=== PATIENT | female | born 1940 | race Caucasian/White ===

== ENCOUNTER 2016-03-27 15:25 | Emergency (ER) | payer MEDICARE, MEDICAID ==
[~2016-03-27] VITALS: Ht 162.6 cm; Wt 78.6 kg
[~2016-03-27 15:25] MED LIST: ANTIVERT 12.512.5 MG PO; B-12 100 MCG PO; CELEXA 20MG20 MG/TAB PO; DYAZIDE 25 MG-31 CAP PO; DYRENIUM 50MG C50 MG PO; ENTOCORT EC3 MG PO; IMODIUM 2MG CAPS2 MG PO; KEPPRA 500MG500 MG PO; KEPPRA1000 MG PO; KEPPRA750 MG PO; LEVSIN 0.10.125 MG/T SL; MEDROL 4MG DOSPA4 MG PO; MELATONIN5 M1 SL; NIZORAL CR 30GM TOP; NORCO 325 MG-51 TAB PO; PERCOCET 325 MG1 TA2 PO; PRILOSEC 20MG20 MG PO; PRILOTC; PROAIR HFA0.09 MG/AC IH; ROXICODONE 55 MG/TAB PO; RT ADVAIR 228 DISKUS IH; TYLENOL PM EXTR1 TA1 PO; ULTRAM 50MG TAB50 MG PO; VENTOLIN0.09 MG IH; VITAMIN B-1000 MCG/T PO; VITAMIN D32000 I1 PO; XARELTO10 MG PO; ZITHROMAX 250M250 MG PO; ZOCOR 40MG40 MG PO
[2016-03-27 15:41] VITALS: TEMP 98.1
[2016-03-27 16:25] LABS: BASO # 0.1 (0.0-0.2); BASO % 0.7 % (0.0-2.0); EOS # 0.1 (0.0-0.7); EOS % 0.8 % (0-4.0); GRAN # 6.4 (1.4-6.5); GRAN % 76.3 % (42.2-75.2); HEMATOCRIT 36.9 % (37.0-47.0); HEMOGLOBIN 12.1 g/dl (12.5-16.0); LYMPH # 1.6 (1.2-3.4); LYMPH % 18.6 % (20.0-51.0); MEAN CELL VOLUME 96 fl (80.0-100.0); MEAN CORPUSCULAR HEMOGLOBIN 31 pg (27.0-31.0); MEAN CORPUSCULAR HGB CONC 33 g/dl (33.0-37.0); MEAN PLATELET VOLUME 9.8 fl (7.4-10.4); MONO # 0.3 (0.1-0.6); MONO % 3.2 % (1.7-9.3); PLATELET COUNT 264 K/mm3 (130-400); RED BLOOD COUNT 3.85 M/mm3 (4.10-5.30); REDCELL DISTRIBUTION WIDTH-CV 13.2 % (11.5-14.5); WHITE BLOOD COUNT 8.4 K/mm3 (4.8-10.8)
[2016-03-27 16:35] LABS: INR 2.2 (0.8-3.0); PROTHROMBIN TIME 25.5 SECONDS (9.7-12.8)
[2016-03-27 17:03] LABS: ADJUSTED CALCIUM 9.1 mg/dL (8.4-10.2); ALBUMIN 3.1 gm/dL (3.5-5.0); BILIRUBIN,TOTAL 0.6 mg/dL (0.0-1.0); CALCIUM 8.4 mg/dL (8.4-10.2); CREATININE, serum 1.08 mg/dL (0.52-1.25); POTASSIUM 4.3 mmol/L (3.4-5.0)
[2016-03-27 17:18] LABS: PROLACTIN 14.8 ng/mL (3.0-18.6)
[2016-03-27] MEDS ORDERED: NORCO 325 MG-51 TAB PO (17:58)
[2016-03-27] MEDS ORDERED: ZITHROMAX 250M250 MG PO (17:58)
[2016-03-27] MEDS ORDERED: PREDNISONE20 MG PO (17:58)
[2016-03-27 19:26] VITALS: BP 138/78; PULSE 78
== END 2016-03-27 19:28 | disposition home or self-care (01) ==
LOC: COL.ER 15:25
PROVIDERS: Emergency Medicine
DX: R04.0 Epistaxis (principal); G40.909 Epilepsy, unspecified, not intractable, without status epilepticus; J40 Bronchitis, not specified as acute or chronic; J44.9 Chronic obstructive pulmonary disease, unspecified; I25.10 Atherosclerotic heart disease of native coronary artery without angina pectoris; I10 Essential (primary) hypertension; F17.210 Nicotine dependence, cigarettes, uncomplicated; Z95.0 Presence of cardiac pacemaker; Z86.73 Personal history of transient ischemic attack (TIA), and cerebral infarction without residual deficits
CPT/HCPCS: J2405; J7030; J7512

== ENCOUNTER → 2016-05-25 | Outpatient (CLI) | payer MEDICARE, MEDICAID ==
[~2016-05-25] MED LIST changes: +CHERATUSSIN AC120 ML PO; +DOXYCYCLINE 10100 MG PO; +LAMICTAL 25MG T25 MG PO; +PREDNISONE20 MG PO
== END ==
LOC: MC.RAD 09:21
DX: N64.4 Mastodynia (principal); D24.2 Benign neoplasm of left breast; D24.1 Benign neoplasm of right breast; Z85.3 Personal history of malignant neoplasm of breast

== ENCOUNTER 2016-07-08 10:38 | Emergency (ER) | payer MEDICARE, MEDICAID ==
[~2016-07-08] VITALS: Ht 160 cm; Wt 78.6 kg
[~2016-07-08 10:38] MED LIST changes: -CHERATUSSIN AC120 ML PO; -DOXYCYCLINE 10100 MG PO; -LAMICTAL 25MG T25 MG PO
[2016-07-08 10:40] VITALS: PULSE 78; TEMP 97.2
[2016-07-08 11:54] LABS: ADJUSTED CALCIUM 9.3 mg/dL (8.4-10.2); ALANINE AMINOTRANSFERASE 21 U/L (9-52); ALBUMIN 3.6 gm/dL (3.5-5.0); ALKALINE PHOSPHATASE 85 U/L (50-136); ANION GAP 9 mmol/L (7-16); BILIRUBIN,TOTAL 0.6 mg/dL (0.0-1.0); BLOOD UREA NITROGEN 29 mg/dL (7-17); CARBON DIOXIDE 25 mmol/L (22-30); CHLORIDE 105 mmol/L (98-107); GLUCOSE 85 mg/dL (74-106); POTASSIUM 4.4 mmol/L (3.4-5.0); SODIUM 139 mmol/L (137-145); TOTAL PROTEIN 6.4 gm/dL (6.4-8.2)
[2016-07-08 11:58] LABS: C-REACTIVE PROTEIN < 0.5 mg/dL (0.0-0.9)
[2016-07-08 12:05] LABS: BASO # 0.1 (0.0-0.2); BASO % 0.9 % (0.0-2.0); EOS # 0.2 (0.0-0.7); EOS % 2.4 % (0-4.0); GRAN # 4.1 (1.4-6.5); GRAN % 61.5 % (42.2-75.2); HEMATOCRIT 41.5 % (37.0-47.0); HEMOGLOBIN 13.9 g/dl (12.5-16.0); LYMPH % 30.5 % (20.0-51.0); MEAN CELL VOLUME 97 fl (80.0-100.0); MEAN CORPUSCULAR HEMOGLOBIN 33 pg (27.0-31.0); MEAN CORPUSCULAR HGB CONC 34 g/dl (33.0-37.0); MEAN PLATELET VOLUME 11.2 fl (7.4-10.4); MONO # 0.3 (0.1-0.6); MONO % 4.5 % (1.7-9.3); PLATELET COUNT 191 K/mm3 (130-400); RED BLOOD COUNT 4.27 M/mm3 (4.10-5.30); WHITE BLOOD COUNT 6.7 K/mm3 (4.8-10.8)
[2016-07-08 12:08] LABS: PROLACTIN 13.5 ng/mL (3.0-18.6)
[2016-07-08 13:30] VITALS: BP 129/52
== END 2016-07-08 13:32 | disposition home or self-care (01) ==
LOC: COL.ER 10:38
PROVIDERS: Family Medicine
DX: G40.909 Epilepsy, unspecified, not intractable, without status epilepticus (principal)

== ENCOUNTER 2016-07-22 15:55 | Emergency (ER) | payer MEDICARE, MEDICAID ==
[~2016-07-22] VITALS: Ht 160 cm; Wt 80.9 kg
[2016-07-22 16:04] VITALS: BP 138/50; TEMP 98.2
[2016-07-22 16:23] LABS: BASO # 0.1 (0.0-0.2); BASO % 0.7 % (0.0-2.0); EOS # 0.2 (0.0-0.7); EOS % 2.9 % (0-4.0); GRAN # 3.3 (1.4-6.5); HEMATOCRIT 40.5 % (37.0-47.0); HEMOGLOBIN 13.3 g/dl (12.5-16.0); LYMPH # 2.8 (1.2-3.4); LYMPH % 40.8 % (20.0-51.0); MEAN CELL VOLUME 96 fl (80.0-100.0); MEAN CORPUSCULAR HEMOGLOBIN 32 pg (27.0-31.0); MEAN CORPUSCULAR HGB CONC 33 g/dl (33.0-37.0); MEAN PLATELET VOLUME 10.6 fl (7.4-10.4); MONO # 0.4 (0.1-0.6); MONO % 6.3 % (1.7-9.3); PLATELET COUNT 182 K/mm3 (130-400); RED BLOOD COUNT 4.21 M/mm3 (4.10-5.30); REDCELL DISTRIBUTION WIDTH-CV 12.8 % (11.5-14.5); WHITE BLOOD COUNT 6.8 K/mm3 (4.8-10.8)
[2016-07-22 16:27] LABS: INR 1.5 (0.8-3.0); PROTHROMBIN TIME 16.6 SECONDS (9.7-12.8)
[2016-07-22 16:30] LABS: PARTIAL THROMBOPLASTIN TIME 35.4 SECONDS (26.0-37.0)
[2016-07-22 16:35] LABS: ADJUSTED CALCIUM 9.1 mg/dL (8.4-10.2); ALANINE AMINOTRANSFERASE 19 U/L (9-52); ALBUMIN 3.4 gm/dL (3.5-5.0); ALKALINE PHOSPHATASE 74 U/L (50-136); ANION GAP 9 mmol/L (7-16); BILIRUBIN,TOTAL 0.6 mg/dL (0.0-1.0); BLOOD UREA NITROGEN 25 mg/dL (7-17); CALCIUM 8.6 mg/dL (8.4-10.2); CARBON DIOXIDE 24 mmol/L (22-30); CHLORIDE 107 mmol/L (98-107); CREATININE, serum 1.05 mg/dL (0.52-1.25); GLUCOSE 127 mg/dL (74-106); POTASSIUM 4.2 mmol/L (3.4-5.0); SODIUM 140 mmol/L (137-145); TOTAL PROTEIN 6.2 gm/dL (6.4-8.2)
[2016-07-22 16:52] LABS: PROLACTIN 9.3 ng/mL (3.0-18.6)
[2016-07-22 17:03] LABS: TROPONIN-I < 0.012 ng/mL (0.000-0.034)
[2016-07-22 17:31] LABS: PH 5 (5-8); SQUAMOUS EPITHELIAL None Seen /hpf; URINE APPEARANCE Hazy; URINE BACTERIA None Seen /hpf; URINE BILIRUBIN Negative (NEGATIVE); URINE BLOOD Negative (NEGATIVE); URINE COLOR Yellow; URINE GLUCOSE Negative (NEGATIVE); URINE KETONE Negative (NEGATIVE); URINE RBC 0-2 /hpf; URINE UROBILINOGEN Negative (NEGATIVE); URINE WBC 0-2 /hpf
[2016-07-22] MEDS ORDERED: LAMICTAL 25MG T25 MG PO (17:47)
[2016-07-22 18:31] VITALS: PULSE 70
== END 2016-07-22 18:31 | disposition home or self-care (01) ==
LOC: COL.ER 15:55
PROVIDERS: Emergency Medicine
DX: G40.909 Epilepsy, unspecified, not intractable, without status epilepticus (principal); I69.998 Other sequelae following unspecified cerebrovascular disease; I10 Essential (primary) hypertension; I25.10 Atherosclerotic heart disease of native coronary artery without angina pectoris; F41.9 Anxiety disorder, unspecified; Z85.3 Personal history of malignant neoplasm of breast; Z79.01 Long term (current) use of anticoagulants; F32.9 Major depressive disorder, single episode, unspecified
CPT/HCPCS: J2060; J7030

== ENCOUNTER 2016-09-07 21:25 | Emergency (ER) | payer MEDICARE, MEDICAID ==
[~2016-09-07] VITALS: Ht 160 cm; Wt 78.6 kg
[~2016-09-07 21:25] MED LIST changes: +LAMICTAL 25MG T25 MG PO
[2016-09-07 21:26] VITALS: BP 141/50; TEMP 97.2
[2016-09-07 22:10] LABS: BASO # 0.1 (0.0-0.2); BASO % 0.7 % (0.0-2.0); EOS # 0.3 (0.0-0.7); EOS % 2.7 % (0-4.0); GRAN # 5.3 (1.4-6.5); GRAN % 55.1 % (42.2-75.2); HEMATOCRIT 39.2 % (37.0-47.0); HEMOGLOBIN 12.9 g/dl (12.5-16.0); LYMPH # 3.3 (1.2-3.4); LYMPH % 34.3 % (20.0-51.0); MEAN CELL VOLUME 95 fl (80.0-100.0); MEAN CORPUSCULAR HEMOGLOBIN 31 pg (27.0-31.0); MEAN CORPUSCULAR HGB CONC 33 g/dl (33.0-37.0); MEAN PLATELET VOLUME 10.5 fl (7.4-10.4); MONO # 0.7 (0.1-0.6); MONO % 6.9 % (1.7-9.3); PLATELET COUNT 198 K/mm3 (130-400); RED BLOOD COUNT 4.11 M/mm3 (4.10-5.30); REDCELL DISTRIBUTION WIDTH-CV 12.7 % (11.5-14.5); WHITE BLOOD COUNT 9.6 K/mm3 (4.8-10.8)
[2016-09-07 22:15] LABS: INR 2.5 (0.8-3.0); PROTHROMBIN TIME 28.2 SECONDS (9.7-12.8)
[2016-09-07 22:17] LABS: PARTIAL THROMBOPLASTIN TIME 42.9 SECONDS (26.0-37.0)
[2016-09-07 22:22] LABS: ADJUSTED CALCIUM 8.8 mg/dL (8.4-10.2); ALBUMIN 3.7 gm/dL (3.5-5.0); BILIRUBIN,TOTAL 0.6 mg/dL (0.0-1.0); CALCIUM 8.6 mg/dL (8.4-10.2); POTASSIUM 4.6 mmol/L (3.4-5.0); TOTAL PROTEIN 6.7 gm/dL (6.4-8.2)
[2016-09-07 22:38] LABS: PROLACTIN 17.4 ng/mL (3.0-18.6)
[2016-09-07] MEDS ORDERED: ROXICODONE 55 MG/TAB PO (22:57)
[2016-09-07] MEDS ORDERED: ZITHROMAX 250M250 MG PO (22:57)
[2016-09-08 00:07] VITALS: PULSE 61
== END 2016-09-08 00:08 | disposition home or self-care (01) ==
LOC: COL.ER 21:25
PROVIDERS: Emergency Medicine
DX: R04.0 Epistaxis (principal); J40 Bronchitis, not specified as acute or chronic; R11.2 Nausea with vomiting, unspecified; F17.210 Nicotine dependence, cigarettes, uncomplicated; I25.10 Atherosclerotic heart disease of native coronary artery without angina pectoris; G40.909 Epilepsy, unspecified, not intractable, without status epilepticus; Z86.718 Personal history of other venous thrombosis and embolism; Z86.711 Personal history of pulmonary embolism; Z85.3 Personal history of malignant neoplasm of breast; Z79.01 Long term (current) use of anticoagulants
CPT/HCPCS: J2060; J7030

== ENCOUNTER 2016-09-13 15:41 | Emergency (ER) | payer MEDICARE, MEDICAID ==
[~2016-09-13] VITALS: Ht 165.1 cm; Wt 81.8 kg
[2016-09-13 15:45] VITALS: TEMP 98.8
[2016-09-13 16:10] LABS: BASO # 0.1 (0.0-0.2); BASO % 0.8 % (0.0-2.0); EOS # 0.2 (0.0-0.7); EOS % 2.7 % (0-4.0); GRAN # 4.5 (1.4-6.5); GRAN % 56.1 % (42.2-75.2); HEMATOCRIT 39.6 % (37.0-47.0); HEMOGLOBIN 13.1 g/dl (12.5-16.0); LYMPH # 2.8 (1.2-3.4); LYMPH % 34.8 % (20.0-51.0); MEAN CELL VOLUME 95 fl (80.0-100.0); MEAN CORPUSCULAR HEMOGLOBIN 32 pg (27.0-31.0); MEAN CORPUSCULAR HGB CONC 33 g/dl (33.0-37.0); MEAN PLATELET VOLUME 10.4 fl (7.4-10.4); MONO # 0.4 (0.1-0.6); MONO % 5.3 % (1.7-9.3); PLATELET COUNT 241 K/mm3 (130-400); RED BLOOD COUNT 4.15 M/mm3 (4.10-5.30); REDCELL DISTRIBUTION WIDTH-CV 12.8 % (11.5-14.5); WHITE BLOOD COUNT 7.9 K/mm3 (4.8-10.8)
[2016-09-13 16:18] LABS: ADJUSTED CALCIUM 8.8 mg/dL (8.4-10.2); ALANINE AMINOTRANSFERASE 19 U/L (9-52); ALBUMIN 3.6 gm/dL (3.5-5.0); ALKALINE PHOSPHATASE 89 U/L (50-136); ANION GAP 7 mmol/L (7-16); BILIRUBIN,TOTAL 0.6 mg/dL (0.0-1.0); BLOOD UREA NITROGEN 18 mg/dL (7-17); C-REACTIVE PROTEIN < 0.5 mg/dL (0.0-0.9); CALCIUM 8.5 mg/dL (8.4-10.2); CARBON DIOXIDE 26 mmol/L (22-30); CHLORIDE 102 mmol/L (98-107); CREATININE, serum 1.06 mg/dL (0.52-1.25); GLUCOSE 147 mg/dL (74-106); POTASSIUM 4.2 mmol/L (3.4-5.0); SODIUM 134 mmol/L (137-145); TOTAL PROTEIN 6.6 gm/dL (6.4-8.2)
[2016-09-13] MEDS ORDERED: PREDNISONE20 MG PO (17:29)
[2016-09-13] MEDS ORDERED: DOXYCYCLINE 10100 MG PO (17:29)
[2016-09-13] MEDS ORDERED: CHERATUSSIN AC120 ML PO (17:30)
[2016-09-13 17:52] VITALS: BP 126/74; PULSE 71
== END 2016-09-13 17:55 | disposition home or self-care (01) ==
LOC: COL.ER 15:41
PROVIDERS: Family Medicine
DX: J20.9 Acute bronchitis, unspecified (principal); J44.9 Chronic obstructive pulmonary disease, unspecified; I25.2 Old myocardial infarction; I10 Essential (primary) hypertension; M19.90 Unspecified osteoarthritis, unspecified site; F32.9 Major depressive disorder, single episode, unspecified; F41.9 Anxiety disorder, unspecified; I82.409 Acute embolism and thrombosis of unspecified deep veins of unspecified lower extremity; Z85.3 Personal history of malignant neoplasm of breast; Z98.890 Other specified postprocedural states; Z95.0 Presence of cardiac pacemaker; Z86.79 Personal history of other diseases of the circulatory system; Z79.01 Long term (current) use of anticoagulants
CPT/HCPCS: J2930

== ENCOUNTER 2016-12-06 12:00 | Emergency (ER) | payer MEDICARE, MEDICAID ==
[~2016-12-06] VITALS: Ht 160 cm; Wt 83.2 kg
[~2016-12-06 12:00] MED LIST changes: +CHERATUSSIN AC120 ML PO; +DOXYCYCLINE 10100 MG PO
[2016-12-06 12:07] VITALS: TEMP 97.5
[2016-12-06] MEDS ORDERED: KEPPRA1000 MG PO (12:12)
[2016-12-06] MEDS ORDERED: XARELTO20 MG PO (12:13)
[2016-12-06] MEDS ORDERED: TYLENOL 500MG500 MG PO (12:16)
[2016-12-06 13:11] LABS: BASO # 0.1 (0.0-0.2); BASO % 0.9 % (0.0-2.0); EOS # 0.1 (0.0-0.7); EOS % 2.3 % (0-4.0); GRAN # 3.2 (1.4-6.5); GRAN % 55.8 % (42.2-75.2); HEMATOCRIT 38.8 % (37.0-47.0); HEMOGLOBIN 12.7 g/dl (12.5-16.0); LYMPH % 35.1 % (20.0-51.0); MEAN CELL VOLUME 97 fl (80.0-100.0); MEAN CORPUSCULAR HEMOGLOBIN 32 pg (27.0-31.0); MEAN CORPUSCULAR HGB CONC 33 g/dl (33.0-37.0); MEAN PLATELET VOLUME 10.7 fl (7.4-10.4); MONO # 0.3 (0.1-0.6); MONO % 5.6 % (1.7-9.3); PLATELET COUNT 168 K/mm3 (130-400); RED BLOOD COUNT 4.01 M/mm3 (4.10-5.30); REDCELL DISTRIBUTION WIDTH-CV 13.1 % (11.5-14.5); WHITE BLOOD COUNT 5.8 K/mm3 (4.8-10.8)
[2016-12-06 13:17] LABS: ADJUSTED CALCIUM 9.2 mg/dL (8.4-10.2); ALBUMIN 3.2 gm/dL (3.5-5.0); BILIRUBIN,TOTAL 0.7 mg/dL (0.0-1.0); CALCIUM 8.6 mg/dL (8.4-10.2); CREATININE, serum 1.07 mg/dL (0.52-1.25); POTASSIUM 4.4 mmol/L (3.4-5.0); TOTAL PROTEIN 5.8 gm/dL (6.4-8.2)
[2016-12-06 13:34] LABS: PROLACTIN 27.3 ng/mL (3.0-18.6)
[2016-12-06 14:34] VITALS: BP 127/54; PULSE 59
== END 2016-12-06 14:36 | disposition home or self-care (01) ==
LOC: COL.ER 12:00
PROVIDERS: Emergency Medicine
DX: G40.909 Epilepsy, unspecified, not intractable, without status epilepticus (principal); F32.9 Major depressive disorder, single episode, unspecified; F41.9 Anxiety disorder, unspecified; F17.210 Nicotine dependence, cigarettes, uncomplicated; Z85.3 Personal history of malignant neoplasm of breast; Z86.711 Personal history of pulmonary embolism; Z86.79 Personal history of other diseases of the circulatory system
CPT/HCPCS: J2060; J7030

== ENCOUNTER 2017-03-02 22:26 | Emergency (ER) | payer MEDICARE, MEDICAID ==
[~2017-03-02] VITALS: Ht 157.5 cm; Wt 81.8 kg
[2017-03-02 22:26] VITALS: TEMP 98.1
[~2017-03-02 22:26] MED LIST changes: +TYLENOL 500MG500 MG PO; +XARELTO20 MG PO
[2017-03-02 23:19] LABS: BASO # 0.1 (0.0-0.2); BASO % 0.7 % (0.0-2.0); EOS # 0.1 (0.0-0.7); EOS % 1.3 % (0-4.0); GRAN # 5.6 (1.4-6.5); GRAN % 66.8 % (42.2-75.2); HEMOGLOBIN 13.2 g/dl (12.5-16.0); LYMPH # 2.1 (1.2-3.4); LYMPH % 25.7 % (20.0-51.0); MEAN CELL VOLUME 99 fl (80.0-100.0); MEAN CORPUSCULAR HEMOGLOBIN 32 pg (27.0-31.0); MEAN CORPUSCULAR HGB CONC 32 g/dl (33.0-37.0); MEAN PLATELET VOLUME 10.3 fl (7.4-10.4); MONO # 0.4 (0.1-0.6); MONO % 5.3 % (1.7-9.3); PLATELET COUNT 208 K/mm3 (130-400); RED BLOOD COUNT 4.14 M/mm3 (4.10-5.30); WHITE BLOOD COUNT 8.3 K/mm3 (4.8-10.8)
[2017-03-02 23:24] LABS: INR 1.9 (0.8-3.0); PROTHROMBIN TIME 21.7 SECONDS (9.7-12.8)
[2017-03-02 23:26] LABS: PARTIAL THROMBOPLASTIN TIME 31.9 SECONDS (26.0-37.0)
[2017-03-02 23:30] VITALS: BP 121/56; PULSE 71
[2017-03-02 23:31] LABS: ADJUSTED CALCIUM 9.3 mg/dL (8.4-10.2); ALBUMIN 3.6 gm/dL (3.5-5.0); BILIRUBIN,TOTAL 0.6 mg/dL (0.0-1.0); CREATININE, serum 1.15 mg/dL (0.52-1.25); POTASSIUM 4.7 mmol/L (3.4-5.0); TOTAL PROTEIN 6.5 gm/dL (6.4-8.2)
== END 2017-03-02 23:55 | disposition home or self-care (01) ==
LOC: COL.ER 22:26
PROVIDERS: Emergency Medicine
DX: R04.0 Epistaxis (principal); M25.561 Pain in right knee; I25.10 Atherosclerotic heart disease of native coronary artery without angina pectoris; I10 Essential (primary) hypertension; J44.9 Chronic obstructive pulmonary disease, unspecified; G40.909 Epilepsy, unspecified, not intractable, without status epilepticus; F17.210 Nicotine dependence, cigarettes, uncomplicated; Z95.0 Presence of cardiac pacemaker; Z86.718 Personal history of other venous thrombosis and embolism; Z86.73 Personal history of transient ischemic attack (TIA), and cerebral infarction without residual deficits; Z85.3 Personal history of malignant neoplasm of breast

== ENCOUNTER 2017-03-04 14:24 | Emergency (ER) | payer MEDICARE, MEDICAID ==
[~2017-03-04] VITALS: Ht 157.5 cm; Wt 81.8 kg
[2017-03-04 14:25] VITALS: TEMP 98.4
[2017-03-04 15:27] LABS: BASO # 0.1 (0.0-0.2); BASO % 0.7 % (0.0-2.0); EOS # 0.1 (0.0-0.7); EOS % 2.1 % (0-4.0); GRAN # 3.2 (1.4-6.5); GRAN % 47.8 % (42.2-75.2); HEMATOCRIT 39.3 % (37.0-47.0); HEMOGLOBIN 12.8 g/dl (12.5-16.0); LYMPH # 2.8 (1.2-3.4); LYMPH % 42.1 % (20.0-51.0); MEAN CELL VOLUME 98 fl (80.0-100.0); MEAN CORPUSCULAR HEMOGLOBIN 32 pg (27.0-31.0); MEAN CORPUSCULAR HGB CONC 33 g/dl (33.0-37.0); MEAN PLATELET VOLUME 10.9 fl (7.4-10.4); MONO # 0.5 (0.1-0.6); PLATELET COUNT 212 K/mm3 (130-400); RED BLOOD COUNT 4.03 M/mm3 (4.10-5.30); WHITE BLOOD COUNT 6.7 K/mm3 (4.8-10.8)
[2017-03-04 15:33] LABS: INR 1.2 (0.8-3.0); PROTHROMBIN TIME 13.7 SECONDS (9.7-12.8)
[2017-03-04 15:36] LABS: PARTIAL THROMBOPLASTIN TIME 28.7 SECONDS (26.0-37.0)
[2017-03-04 15:49] LABS: ADJUSTED CALCIUM 9.2 mg/dL (8.4-10.2); ALANINE AMINOTRANSFERASE 25 U/L (9-52); ALBUMIN 3.6 gm/dL (3.5-5.0); ALKALINE PHOSPHATASE 101 U/L (50-136); ANION GAP 6 mmol/L (7-16); BILIRUBIN,TOTAL 0.5 mg/dL (0.0-1.0); BLOOD UREA NITROGEN 24 mg/dL (7-17); C-REACTIVE PROTEIN 1.4 mg/dL (0.0-0.9); CALCIUM 8.9 mg/dL (8.4-10.2); CARBON DIOXIDE 25 mmol/L (22-30); CHLORIDE 106 mmol/L (98-107); CREATININE, serum 1.13 mg/dL (0.52-1.25); GLUCOSE 80 mg/dL (74-106); POTASSIUM 4.1 mmol/L (3.4-5.0); SODIUM 137 mmol/L (137-145); TOTAL PROTEIN 6.4 gm/dL (6.4-8.2)
[2017-03-04 16:02] LABS: PROLACTIN 11.8 ng/mL (3.0-18.6)
[2017-03-04 16:04] LABS: ALCOHOL(ethanol),MEDICAL < 10 mg/dL; TROPONIN-I < 0.012 ng/mL (0.000-0.034)
[2017-03-04 18:03] VITALS: BP 142/48; PULSE 59
== END 2017-03-04 18:03 | disposition home or self-care (01) ==
LOC: COL.ER 14:24
PROVIDERS: Emergency Medicine
DX: R41.82 Altered mental status, unspecified (principal); R51 Headache; R91.1 Solitary pulmonary nodule; J44.9 Chronic obstructive pulmonary disease, unspecified; F32.9 Major depressive disorder, single episode, unspecified; G40.909 Epilepsy, unspecified, not intractable, without status epilepticus; Z86.73 Personal history of transient ischemic attack (TIA), and cerebral infarction without residual deficits; Z86.718 Personal history of other venous thrombosis and embolism; Z95.0 Presence of cardiac pacemaker; Z85.3 Personal history of malignant neoplasm of breast
CPT/HCPCS: J2270; J2405; J7030

== ENCOUNTER → 2017-03-20 | Outpatient (CLI) | payer MEDICARE, MEDICAID | LOC: COL.RAD 11:07 | DX: R91.1 Solitary pulmonary nodule (principal); Z72.0 Tobacco use; Z98.890 Other specified postprocedural states | CPT/HCPCS: J7050; Q9967 ==

== ENCOUNTER 2017-04-05 09:13 | Outpatient (CLI) | payer MEDICARE, MEDICAID ==
[2017-04-05] VITALS (13 sets, daily range): BP systolic 126–159; BP diastolic 44–70; PULSE 59–83
[~2017-04-05] VITALS: Ht 162.6 cm; Wt 88.4 kg
== END 2017-04-05 14:34 | disposition home or self-care (01) ==
LOC: COL.RAD 09:13
DX: R91.1 Solitary pulmonary nodule (principal)
CPT/HCPCS: J2250; J3010

== ENCOUNTER 2017-04-06 23:20 | Emergency (ER) | payer MEDICARE, MEDICAID ==
[~2017-04-06] VITALS: Ht 160 cm; Wt 85.9 kg
[2017-04-06 23:24] VITALS: BP 138/56
[2017-04-07] LABS: BASO # 0.1 (0.0-0.2); BASO % 0.8 % (0.0-2.0); EOS # 0.2 (0.0-0.7); EOS % 3.1 % (0-4.0); GRAN # 3.6 (1.4-6.5); GRAN % 48.9 % (42.2-75.2); HEMATOCRIT 38.8 % (37.0-47.0); HEMOGLOBIN 12.6 g/dl (12.5-16.0); LYMPH # 3.1 (1.2-3.4); LYMPH % 41.9 % (20.0-51.0); MEAN CELL VOLUME 98 fl (80.0-100.0); MEAN CORPUSCULAR HEMOGLOBIN 32 pg (27.0-31.0); MEAN CORPUSCULAR HGB CONC 33 g/dl (33.0-37.0); MEAN PLATELET VOLUME 10.7 fl (7.4-10.4); MONO # 0.4 (0.1-0.6); MONO % 5.2 % (1.7-9.3); PLATELET COUNT 190 K/mm3 (130-400); RED BLOOD COUNT 3.95 M/mm3 (4.10-5.30); REDCELL DISTRIBUTION WIDTH-CV 13.2 % (11.5-14.5)
[2017-04-07 00:20] LABS: INR 1.9 (0.8-3.0); PROTHROMBIN TIME 21.9 SECONDS (9.7-12.8)
[2017-04-07 00:23] LABS: PARTIAL THROMBOPLASTIN TIME 35.5 SECONDS (26.0-37.0)
[2017-04-07 01:33] VITALS: PULSE 61
== END 2017-04-07 01:33 | disposition home or self-care (01) ==
LOC: COL.ER 23:20
PROVIDERS: Emergency Medicine
DX: R04.0 Epistaxis (principal); I25.10 Atherosclerotic heart disease of native coronary artery without angina pectoris; J44.9 Chronic obstructive pulmonary disease, unspecified; Z86.73 Personal history of transient ischemic attack (TIA), and cerebral infarction without residual deficits; Z86.718 Personal history of other venous thrombosis and embolism; Z79.01 Long term (current) use of anticoagulants

== ENCOUNTER → 2017-04-24 | Outpatient (CLI) | payer MEDICARE, MEDICAID | LOC: COL.RAD 13:12 | DX: E07.9 Disorder of thyroid, unspecified (principal) ==

== ENCOUNTER 2017-05-09 18:23 | Emergency (ER) | payer MEDICARE, MEDICAID ==
[~2017-05-09] VITALS: Ht 160 cm; Wt 85.9 kg
[2017-05-09 18:27] VITALS: BP 130/56; TEMP 96.9
[2017-05-09 20:05] LABS: COLLECTION METHOD CLEAN CATCH
[2017-05-09] MEDS ORDERED: KEPPRA1000 MG PO (20:11)
[2017-05-09 20:12] LABS: MUCOUS Present /lpf; PH 5 (5-8); SQUAMOUS EPITHELIAL 0-2 /hpf; URINE APPEARANCE Cloudy; URINE BACTERIA None Seen /hpf; URINE BILIRUBIN Negative (NEGATIVE); URINE BLOOD 2+ (NEGATIVE); URINE COLOR Amber; URINE GLUCOSE Negative (NEGATIVE); URINE KETONE Trace (NEGATIVE); URINE LEUKOCYTE ESTERASE 3+ (NEGATIVE); URINE NITRATE Negative (NEGATIVE); URINE PROTEIN(semi-quant) 2+ (NEGATIVE); URINE RBC >50 /hpf; URINE UROBILINOGEN >=4.0 mg/dL (NEGATIVE)
[2017-05-09] MEDS ORDERED: OMNICEF 300MG300 MG PO (20:36)
[2017-05-09] MEDS ORDERED: NORCO 325 MG-51 TAB PO (20:36)
[2017-05-09] MEDS ORDERED: PYRIDIUM200 M1 PO (20:36)
[2017-05-09 21:00] VITALS: PULSE 68
== END 2017-05-09 21:00 | disposition home or self-care (01) ==
LOC: COL.ER 18:23
PROVIDERS: Emergency Medicine
DX: N39.0 Urinary tract infection, site not specified (principal); J44.9 Chronic obstructive pulmonary disease, unspecified; F17.210 Nicotine dependence, cigarettes, uncomplicated; Z85.118 Personal history of other malignant neoplasm of bronchus and lung; Z85.3 Personal history of malignant neoplasm of breast; Z86.711 Personal history of pulmonary embolism

== ENCOUNTER 2017-05-17 07:26 | Day surgery (SDC) | payer MEDICARE, MEDICAID ==
[~2017-05-17] VITALS: Ht 161.3 cm; Wt 86.6 kg
[~2017-05-17 07:26] MED LIST changes: +OMNICEF 300MG300 MG PO; +PYRIDIUM200 M1 PO
[2017-05-17] MEDS ORDERED: RT ADVAIR 228 DISKUS IH (07:51)
[2017-05-17] MEDS ORDERED: PROAIR HFA0.09 MG/AC IH (07:51)
[2017-05-17] MEDS ORDERED: NIZORAL CREAM15 GM TP (07:52)
[2017-05-17] MEDS ORDERED: [UNRECOGNIZED DRUG - OTHER] TOP (07:53)
[2017-05-17 07:54] VITALS: BP 130/48; PULSE 81; TEMP 97.5
[2017-05-17 08:18] LABS: INR 1.1 (0.8-3.0)
[2017-05-17 10:15] VITALS: BP 98/34; PULSE 66; TEMP 98.1
[2017-05-17 10:30] VITALS: BP 113/32; PULSE 72
[2017-05-17 10:45] VITALS: BP 120/58; PULSE 65
[2017-05-17 11:00] VITALS: BP 106/38; PULSE 62
[2017-05-17 16:23] VITALS: BP 105/47; PULSE 71
== END 2017-05-17 11:10 | disposition home or self-care (01) ==
LOC: SDCO 07:26
PROVIDERS: Internal Medicine Pulmonary Disease
DX: C34.11 Malignant neoplasm of upper lobe, right bronchus or lung (principal); J44.9 Chronic obstructive pulmonary disease, unspecified; G47.34 Idiopathic sleep related nonobstructive alveolar hypoventilation; I10 Essential (primary) hypertension; I25.2 Old myocardial infarction; I25.10 Atherosclerotic heart disease of native coronary artery without angina pectoris; K21.9 Gastro-esophageal reflux disease without esophagitis; F17.210 Nicotine dependence, cigarettes, uncomplicated; Z88.8 Allergy status to other drugs, medicaments and biological substances; Z88.1 Allergy status to other antibiotic agents; Z79.01 Long term (current) use of anticoagulants; Z95.0 Presence of cardiac pacemaker; Z86.73 Personal history of transient ischemic attack (TIA), and cerebral infarction without residual deficits; Z80.0 Family history of malignant neoplasm of digestive organs; Z82.49 Family history of ischemic heart disease and other diseases of the circulatory system; Z82.5 Family history of asthma and other chronic lower respiratory diseases
CPT/HCPCS: J2704

== ENCOUNTER 2017-05-23 22:39 | Emergency (ER) | payer MEDICARE, MEDICAID ==
[~2017-05-23] VITALS: Ht 162.6 cm; Wt 86.4 kg
[~2017-05-23 22:39] MED LIST changes: +NIZORAL CREAM15 GM TP; +[UNRECOGNIZED DRUG - OTHER] TOP
[2017-05-23 22:42] VITALS: BP 141/52; TEMP 98.1
[2017-05-23 23:17] LABS: BASO # 0.1 (0.0-0.2); BASO % 0.9 % (0.0-2.0); EOS # 0.2 (0.0-0.7); EOS % 2.7 % (0-4.0); GRAN # 3.8 (1.4-6.5); GRAN % 56.3 % (42.2-75.2); HEMATOCRIT 37.8 % (37.0-47.0); LYMPH # 2.3 (1.2-3.4); LYMPH % 34.6 % (20.0-51.0); MEAN CELL VOLUME 99 fl (80.0-100.0); MEAN CORPUSCULAR HEMOGLOBIN 32 pg (27.0-31.0); MEAN CORPUSCULAR HGB CONC 32 g/dl (33.0-37.0); MONO # 0.4 (0.1-0.6); MONO % 5.4 % (1.7-9.3); PLATELET COUNT 215 K/mm3 (130-400); RED BLOOD COUNT 3.81 M/mm3 (4.10-5.30); REDCELL DISTRIBUTION WIDTH-CV 13.1 % (11.5-14.5)
[2017-05-23 23:22] LABS: INR 1.9 (0.8-3.0); PROTHROMBIN TIME 22.3 SECONDS (9.7-12.8)
[2017-05-24 01:10] VITALS: PULSE 62
== END 2017-05-24 01:10 | disposition home or self-care (01) ==
LOC: COL.ER 22:39
PROVIDERS: Emergency Medicine
DX: R04.0 Epistaxis (principal); I10 Essential (primary) hypertension; E78.5 Hyperlipidemia, unspecified; J44.9 Chronic obstructive pulmonary disease, unspecified; F17.210 Nicotine dependence, cigarettes, uncomplicated; Z86.73 Personal history of transient ischemic attack (TIA), and cerebral infarction without residual deficits

== ENCOUNTER 2017-06-06 13:48 | Emergency (ER) | payer MEDICARE, MEDICAID ==
[~2017-06-06] VITALS: Ht 160 cm; Wt 83.6 kg
[2017-06-06 13:50] VITALS: TEMP 97.4
[2017-06-06 15:06] LABS: BASO % 0.7 % (0.0-2.0); EOS # 0.1 (0.0-0.7); EOS % 2.5 % (0-4.0); GRAN # 3.2 (1.4-6.5); LYMPH # 1.8 (1.2-3.4); MEAN CELL VOLUME 99 fl (80.0-100.0); MEAN CORPUSCULAR HGB CONC 31 g/dl (33.0-37.0); MEAN PLATELET VOLUME 10.2 fl (7.4-10.4); MONO # 0.4 (0.1-0.6); MONO % 7.6 % (1.7-9.3); PLATELET COUNT 180 K/mm3 (130-400); RED BLOOD COUNT 3.45 M/mm3 (4.10-5.30)
[2017-06-06 15:09] LABS: HEMATOCRIT 34.2 % (37.0-47.0); HEMOGLOBIN 10.7 g/dl (12.5-16.0); MEAN CORPUSCULAR HEMOGLOBIN 31 pg (27.0-31.0)
[2017-06-06 15:21] LABS: ALANINE AMINOTRANSFERASE 24 U/L (9-52); ALBUMIN 2.8 gm/dL (3.5-5.0); ALKALINE PHOSPHATASE 76 U/L (50-136); ANION GAP 6 mmol/L (7-16); AST,SGOT 17 U/L (15-37); BILIRUBIN,TOTAL 0.2 mg/dL (0.0-1.0); BLOOD UREA NITROGEN 17 mg/dL (7-17); CARBON DIOXIDE 26 mmol/L (22-30); CHLORIDE 106 mmol/L (98-107); GLUCOSE 99 mg/dL (74-106); POTASSIUM 4.3 mmol/L (3.4-5.0); SODIUM 137 mmol/L (137-145); TOTAL PROTEIN 5.4 gm/dL (6.4-8.2)
[2017-06-06 15:23] LABS: C-REACTIVE PROTEIN < 0.5 mg/dL (0.0-0.9)
[2017-06-06 15:34] LABS: PROLACTIN 13.3 ng/mL (3.0-18.6)
[2017-06-06 15:45] LABS: COLLECTION METHOD CLEAN CATCH
[2017-06-06 15:52] LABS: PH 5 (5-8); SQUAMOUS EPITHELIAL 0-2 /hpf; URINE APPEARANCE Clear; URINE BACTERIA None Seen /hpf; URINE BILIRUBIN Negative (NEGATIVE); URINE BLOOD Negative (NEGATIVE); URINE COLOR Straw; URINE GLUCOSE Negative (NEGATIVE); URINE KETONE Negative (NEGATIVE); URINE LEUKOCYTE ESTERASE Negative (NEGATIVE); URINE NITRATE Negative (NEGATIVE); URINE PROTEIN(semi-quant) Negative (NEGATIVE); URINE RBC None Seen /hpf; URINE UROBILINOGEN Negative (NEGATIVE)
[2017-06-06 16:06] VITALS: BP 127/53; PULSE 59
== END 2017-06-06 16:20 | disposition home or self-care (01) ==
LOC: COL.ER 13:48
PROVIDERS: Family Medicine
DX: G40.909 Epilepsy, unspecified, not intractable, without status epilepticus (principal); F41.9 Anxiety disorder, unspecified
CPT/HCPCS: J2060; J2405; J7030

== ENCOUNTER 2017-06-20 14:14 | Emergency (ER) | payer MEDICARE, MEDICAID ==
[~2017-06-20] VITALS: Ht 160 cm; Wt 82.7 kg
[2017-06-20 14:15] VITALS: TEMP 97.7
[2017-06-20] MEDS ORDERED: INCRUSE EL62.5 MCG/A IH (14:30)
[2017-06-20 14:41] LABS: BASO % 0.8 % (0.0-2.0); EOS # 0.2 (0.0-0.7); LYMPH # 1.5 (1.2-3.4); LYMPH % 29.6 % (20.0-51.0); MEAN CELL VOLUME 98 fl (80.0-100.0); MEAN CORPUSCULAR HGB CONC 32 g/dl (33.0-37.0); MEAN PLATELET VOLUME 10.4 fl (7.4-10.4); MONO # 0.3 (0.1-0.6); MONO % 6.4 % (1.7-9.3); PLATELET COUNT 212 K/mm3 (130-400); RED BLOOD COUNT 3.69 M/mm3 (4.10-5.30); REDCELL DISTRIBUTION WIDTH-CV 12.8 % (11.5-14.5)
[2017-06-20 14:54] LABS: HEMOGLOBIN 11.6 g/dl (12.5-16.0); MEAN CORPUSCULAR HEMOGLOBIN 31 pg (27.0-31.0)
[2017-06-20 14:55] LABS: ALBUMIN 3.1 gm/dL (3.5-5.0); BILIRUBIN,TOTAL 0.2 mg/dL (0.0-1.0); CALCIUM 8.5 mg/dL (8.4-10.2); CREATININE, serum 1.12 mg/dL (0.52-1.25); TOTAL PROTEIN 6.2 gm/dL (6.4-8.2)
[2017-06-20 15:07] LABS: MAGNESIUM 2.2 mg/dL (1.6-2.3)
[2017-06-20 15:45] VITALS: BP 138/47; PULSE 59
== END 2017-06-20 15:45 | disposition home or self-care (01) ==
LOC: COL.ER 14:14
PROVIDERS: Emergency Medicine
DX: C50.911 Malignant neoplasm of unspecified site of right female breast (principal); R56.9 Unspecified convulsions

== ENCOUNTER → 2017-07-12 | Outpatient (CLI) | payer MEDICARE, MEDICAID ==
[~2017-07-12] MED LIST changes: +INCRUSE EL62.5 MCG/A IH
== END ==
LOC: COL.CARD 13:56
DX: G40.409 Other generalized epilepsy and epileptic syndromes, not intractable, without status epilepticus (principal)

== ENCOUNTER 2017-09-24 16:43 | Emergency (ER) | payer MEDICARE, MEDICAID ==
[~2017-09-24] VITALS: Ht 160 cm; Wt 80.5 kg
[2017-09-24 17:04] LABS: BASO # 0.1 (0.0-0.2); BASO % 0.8 % (0.0-2.0); EOS # 0.2 (0.0-0.7); EOS % 2.6 % (0-4.0); GRAN # 3.3 (1.4-6.5); HEMOGLOBIN 11.9 g/dl (12.5-16.0); LYMPH # 2.3 (1.2-3.4); LYMPH % 36.7 % (20.0-51.0); MEAN CELL VOLUME 94 fl (80.0-100.0); MEAN CORPUSCULAR HEMOGLOBIN 31 pg (27.0-31.0); MEAN CORPUSCULAR HGB CONC 33 g/dl (33.0-37.0); MEAN PLATELET VOLUME 10.3 fl (7.4-10.4); MONO # 0.4 (0.1-0.6); MONO % 6.6 % (1.7-9.3); PLATELET COUNT 196 K/mm3 (130-400); RED BLOOD COUNT 3.83 M/mm3 (4.10-5.30); REDCELL DISTRIBUTION WIDTH-CV 14.2 % (11.5-14.5)
[2017-09-24] MEDS ORDERED: COLACE 100100 MG/CAP PO (17:10)
[2017-09-24 17:12] LABS: HEMATOCRIT 36.1 % (37.0-47.0)
[2017-09-24 17:24] LABS: BILIRUBIN,TOTAL 0.4 mg/dL (0.0-1.0); C-REACTIVE PROTEIN 0.5 mg/dL (0.0-0.9); CALCIUM 8.3 mg/dL (8.4-10.2); CREATININE, serum 1.06 mg/dL (0.52-1.25); POTASSIUM 3.5 mmol/L (3.4-5.0); TOTAL PROTEIN 5.8 gm/dL (6.4-8.2)
[2017-09-24 17:49] LABS: COLLECTION METHOD CLEAN CATCH
[2017-09-24 17:54] LABS: MUCOUS Present /lpf; PH 5 (5-8); URINE APPEARANCE Hazy; URINE BACTERIA Rare /hpf; URINE BILIRUBIN Negative (NEGATIVE); URINE BLOOD Negative (NEGATIVE); URINE COLOR Yellow; URINE GLUCOSE Negative (NEGATIVE); URINE KETONE Negative (NEGATIVE); URINE LEUKOCYTE ESTERASE Negative (NEGATIVE); URINE NITRATE Negative (NEGATIVE); URINE PROTEIN(semi-quant) Negative (NEGATIVE); URINE RBC 0-2 /hpf; URINE UROBILINOGEN Negative (NEGATIVE)
[2017-09-24 18:40] VITALS: BP 114/46; PULSE 60
== END 2017-09-24 18:40 | disposition home or self-care (01) ==
LOC: COL.ER 16:43
PROVIDERS: Family Medicine
DX: G40.909 Epilepsy, unspecified, not intractable, without status epilepticus (principal); Z87.891 Personal history of nicotine dependence; Z85.3 Personal history of malignant neoplasm of breast
CPT/HCPCS: J2060; J2405; J7030

== ENCOUNTER 2018-03-13 02:33 | Emergency (ER) | payer MEDICARE, MEDICAID ==
[~2018-03-13] VITALS: Ht 160 cm; Wt 79.1 kg
[~2018-03-13 02:33] MED LIST changes: +COLACE 100100 MG/CAP PO
[2018-03-13 02:37] VITALS: TEMP 97.4
[2018-03-13] MEDS ORDERED: PRIL40 PO (02:58)
[2018-03-13 05:05] VITALS: BP 144/46; PULSE 69
== END 2018-03-13 05:07 | disposition home or self-care (01) ==
LOC: COL.ER 02:33
DX: R04.0 Epistaxis (principal); J44.9 Chronic obstructive pulmonary disease, unspecified; I10 Essential (primary) hypertension; E78.5 Hyperlipidemia, unspecified; F17.210 Nicotine dependence, cigarettes, uncomplicated

== ENCOUNTER 2018-04-12 12:21 | Emergency (ER) | payer MEDICARE, MEDICAID ==
[~2018-04-12] VITALS: Ht 160 cm; Wt 77.3 kg
[~2018-04-12 12:21] MED LIST changes: +PRIL40 PO
[2018-04-12 12:22] VITALS: TEMP 96.8
[2018-04-12 13:07] LABS: BASO # 0.1 (0.0-0.2); BASO % 0.9 % (0.0-2.0); EOS # 0.2 (0.0-0.7); EOS % 3.1 % (0-4.0); GRAN # 3.5 (1.4-6.5); GRAN % 53.8 % (42.2-75.2); HEMATOCRIT 37.7 % (37.0-47.0); HEMOGLOBIN 12.3 g/dl (12.5-16.0); LYMPH # 2.4 (1.2-3.4); LYMPH % 36.3 % (20.0-51.0); MEAN CELL VOLUME 99 fl (80.0-100.0); MEAN CORPUSCULAR HEMOGLOBIN 32 pg (27.0-31.0); MEAN CORPUSCULAR HGB CONC 33 g/dl (33.0-37.0); MEAN PLATELET VOLUME 10.2 fl (7.4-10.4); MONO # 0.4 (0.1-0.6); MONO % 5.6 % (1.7-9.3); PLATELET COUNT 204 K/mm3 (130-400); RED BLOOD COUNT 3.81 M/mm3 (4.10-5.30)
[2018-04-12 13:19] LABS: ALANINE AMINOTRANSFERASE 20 U/L (9-52); ALBUMIN 3.7 gm/dL (3.5-5.0); ALKALINE PHOSPHATASE 93 U/L (50-136); ANION GAP 4 mmol/L (7-16); AST,SGOT 26 U/L (15-37); BILIRUBIN,TOTAL 0.4 mg/dL (0.0-1.0); BLOOD UREA NITROGEN 25 mg/dL (7-17); CALCIUM 9.2 mg/dL (8.4-10.2); CARBON DIOXIDE 27 mmol/L (22-30); CHLORIDE 106 mmol/L (98-107); CREATININE, serum 1.04 mg/dL (0.52-1.25); GLUCOSE 80 mg/dL (74-106); POTASSIUM 4.5 mmol/L (3.4-5.0); SODIUM 138 mmol/L (137-145); TOTAL PROTEIN 6.8 gm/dL (6.4-8.2)
[2018-04-12 13:20] LABS: C-REACTIVE PROTEIN < 0.5 mg/dL (0.0-0.9)
[2018-04-12 13:34] VITALS: BP 137/46; PULSE 85
== END 2018-04-12 13:35 | disposition home or self-care (01) ==
LOC: COL.ER 12:21
PROVIDERS: Family Medicine
DX: R04.0 Epistaxis (principal); I10 Essential (primary) hypertension; G40.909 Epilepsy, unspecified, not intractable, without status epilepticus

== ENCOUNTER 2018-04-17 12:30 | Emergency (ER) | payer MEDICARE, MEDICAID ==
[~2018-04-17] VITALS: Ht 157.5 cm; Wt 79.1 kg
[2018-04-17 12:34] VITALS: TEMP 97.6
[2018-04-17 15:13] VITALS: BP 132/52; PULSE 60
== END 2018-04-17 15:13 | disposition home or self-care (01) ==
LOC: COL.ER 12:30
DX: R04.0 Epistaxis (principal); I10 Essential (primary) hypertension

== ENCOUNTER → 2018-05-05 | Outpatient (CLI) | payer MEDICARE, MEDICAID | LOC: COL.RAD 10:22 | DX: I67.1 Cerebral aneurysm, nonruptured (principal); G40.409 Other generalized epilepsy and epileptic syndromes, not intractable, without status epilepticus; G43.709 Chronic migraine without aura, not intractable, without status migrainosus | CPT/HCPCS: Q9967 ==

== ENCOUNTER 2018-05-11 13:26 | Emergency (ER) | payer MEDICARE, MEDICAID | END 2018-05-11 15:30 | disposition home or self-care (01) | LOC: COL.ER 13:26 | DX: J44.1 Chronic obstructive pulmonary disease with (acute) exacerbation (principal); K08.89 Other specified disorders of teeth and supporting structures; F17.210 Nicotine dependence, cigarettes, uncomplicated; Z95.0 Presence of cardiac pacemaker ==

== ENCOUNTER 2018-05-25 17:51 | Emergency (ER) | payer MEDICARE, MEDICAID ==
[~2018-05-25] VITALS: Ht 160 cm; Wt 79.1 kg
[2018-05-25 17:55] VITALS: TEMP 97.2
[2018-05-25 18:26] LABS: BASO % 0.4 % (0.0-2.0); EOS # 0.1 (0.0-0.7); EOS % 1.8 % (0-4.0); GRAN # 4.2 (1.4-6.5); GRAN % 59.8 % (42.2-75.2); HEMOGLOBIN 10.9 g/dl (12.5-16.0); LYMPH # 2.2 (1.2-3.4); LYMPH % 31.3 % (20.0-51.0); MEAN CELL VOLUME 99 fl (80.0-100.0); MEAN CORPUSCULAR HEMOGLOBIN 31 pg (27.0-31.0); MEAN CORPUSCULAR HGB CONC 32 g/dl (33.0-37.0); MEAN PLATELET VOLUME 10.1 fl (7.4-10.4); MONO # 0.5 (0.1-0.6); MONO % 6.6 % (1.7-9.3); PLATELET COUNT 207 K/mm3 (130-400); RED BLOOD COUNT 3.47 M/mm3 (4.10-5.30); REDCELL DISTRIBUTION WIDTH-CV 14.2 % (11.5-14.5)
[2018-05-25 18:32] LABS: HEMATOCRIT 34.4 % (37.0-47.0)
[2018-05-25 18:41] LABS: ALANINE AMINOTRANSFERASE 24 U/L (9-52); ALBUMIN 3.2 gm/dL (3.5-5.0); ALKALINE PHOSPHATASE 72 U/L (50-136); ANION GAP 4 mmol/L (7-16); AST,SGOT 28 U/L (15-37); BILIRUBIN,TOTAL 0.2 mg/dL (0.0-1.0); BLOOD UREA NITROGEN 23 mg/dL (7-17); CALCIUM 8.6 mg/dL (8.4-10.2); CARBON DIOXIDE 28 mmol/L (22-30); CHLORIDE 107 mmol/L (98-107); CREATININE, serum 1.03 mg/dL (0.52-1.25); GLUCOSE 90 mg/dL (74-106); POTASSIUM 4.2 mmol/L (3.4-5.0); SODIUM 139 mmol/L (137-145); TOTAL PROTEIN 5.9 gm/dL (6.4-8.2)
[2018-05-25 19:14] LABS: TROPONIN-I < 0.012 ng/mL (0.000-0.035)
[2018-05-25 22:20] VITALS: BP 146/74; PULSE 59
== END 2018-05-25 22:21 | disposition home or self-care (01) ==
LOC: COL.ER 17:51
PROVIDERS: Emergency Medicine
DX: R07.89 Other chest pain (principal); R05 Cough; R22.42 Localized swelling, mass and lump, left lower limb; E78.5 Hyperlipidemia, unspecified; I10 Essential (primary) hypertension; J44.9 Chronic obstructive pulmonary disease, unspecified; F17.210 Nicotine dependence, cigarettes, uncomplicated; Z86.711 Personal history of pulmonary embolism; Z86.718 Personal history of other venous thrombosis and embolism; Z79.01 Long term (current) use of anticoagulants; Z95.0 Presence of cardiac pacemaker; Z85.3 Personal history of malignant neoplasm of breast; Z86.73 Personal history of transient ischemic attack (TIA), and cerebral infarction without residual deficits

== ENCOUNTER → 2018-07-03 | Outpatient (CLI) | payer MEDICARE, MEDICAID | LOC: COL.RAD 13:49 | DX: I77.1 Stricture of artery (principal); I70.0 Atherosclerosis of aorta; Z98.890 Other specified postprocedural states; Z95.0 Presence of cardiac pacemaker | CPT/HCPCS: Q9967 ==

== ENCOUNTER 2018-09-15 19:46 | Emergency (ER) | payer MEDICARE, MEDICAID ==
[~2018-09-15] VITALS: Ht 160 cm; Wt 81.8 kg
[2018-09-15 19:52] VITALS: TEMP 97
[2018-09-16] MEDS ORDERED: DOXYCYCLINE 10100 MG PO (00:22)
[2018-09-16 00:39] VITALS: BP 135/57; PULSE 68
== END 2018-09-16 00:45 | disposition home or self-care (01) ==
LOC: COL.ER 19:46
DX: N76.4 Abscess of vulva (principal); I25.10 Atherosclerotic heart disease of native coronary artery without angina pectoris; I10 Essential (primary) hypertension; J45.909 Unspecified asthma, uncomplicated; F17.210 Nicotine dependence, cigarettes, uncomplicated; F32.9 Major depressive disorder, single episode, unspecified; F41.9 Anxiety disorder, unspecified; Z86.73 Personal history of transient ischemic attack (TIA), and cerebral infarction without residual deficits; Z86.718 Personal history of other venous thrombosis and embolism; Z85.118 Personal history of other malignant neoplasm of bronchus and lung

== ENCOUNTER 2018-10-04 21:56 | Emergency (ER) | payer MEDICARE, MEDICAID ==
[~2018-10-04] VITALS: Ht 160 cm; Wt 81.8 kg
[2018-10-04 22:02] VITALS: TEMP 97.9
[2018-10-04 22:33] LABS: BASO # 0.1 (0.0-0.2); BASO % 0.8 % (0.0-2.0); EOS # 0.2 (0.0-0.7); EOS % 3.2 % (0-4.0); GRAN # 3.1 (1.4-6.5); GRAN % 47.4 % (42.2-75.2); HEMATOCRIT 38.7 % (37.0-47.0); HEMOGLOBIN 12.5 g/dl (12.5-16.0); LYMPH # 2.8 (1.2-3.4); LYMPH % 42.6 % (20.0-51.0); MEAN CELL VOLUME 98 fl (80.0-100.0); MEAN CORPUSCULAR HEMOGLOBIN 32 pg (27.0-31.0); MEAN CORPUSCULAR HGB CONC 32 g/dl (33.0-37.0); MEAN PLATELET VOLUME 10.2 fl (7.4-10.4); MONO # 0.4 (0.1-0.6); MONO % 5.8 % (1.7-9.3); PLATELET COUNT 169 K/mm3 (130-400); RED BLOOD COUNT 3.94 M/mm3 (4.10-5.30); REDCELL DISTRIBUTION WIDTH-CV 13.8 % (11.5-14.5)
[2018-10-04 22:40] LABS: INR 1.6 (0.8-3.0); PROTHROMBIN TIME 19.2 SECONDS (9.7-12.8)
[2018-10-04 23:03] LABS: ALANINE AMINOTRANSFERASE 16 U/L (9-52); ALBUMIN 3.5 gm/dL (3.5-5.0); ALKALINE PHOSPHATASE 68 U/L (50-136); ANION GAP 4 mmol/L (7-16); AST,SGOT 32 U/L (15-37); BILIRUBIN,TOTAL 0.4 mg/dL (0.0-1.0); BLOOD UREA NITROGEN 23 mg/dL (7-17); CALCIUM 8.7 mg/dL (8.4-10.2); CARBON DIOXIDE 26 mmol/L (22-30); CHLORIDE 109 mmol/L (98-107); CREATININE, serum 0.95 (0.52-1.25); GLUCOSE 86 mg/dL (74-106); POTASSIUM 4.3 mmol/L (3.4-5.0); SODIUM 139 mmol/L (137-145); TOTAL PROTEIN 6.3 gm/dL (6.4-8.2)
[2018-10-04 23:15] LABS: TROPONIN-I < 0.012 ng/mL (0.000-0.035)
[2018-10-05 00:42] VITALS: BP 141/58; PULSE 71
== END 2018-10-05 00:42 | disposition home or self-care (01) ==
LOC: COL.ER 21:56
PROVIDERS: Emergency Medicine
DX: J44.9 Chronic obstructive pulmonary disease, unspecified (principal); R51 Headache; F17.210 Nicotine dependence, cigarettes, uncomplicated; Z86.73 Personal history of transient ischemic attack (TIA), and cerebral infarction without residual deficits; Z86.718 Personal history of other venous thrombosis and embolism; Z86.79 Personal history of other diseases of the circulatory system; Z95.0 Presence of cardiac pacemaker

== ENCOUNTER 2018-12-04 09:31 | Emergency (ER) | payer MEDICARE, MEDICAID ==
[~2018-12-04] VITALS: Ht 160 cm; Wt 81.8 kg
[2018-12-04 10:03] LABS: BASO # 0.1 (0.0-0.2); BASO % 0.6 % (0.0-2.0); EOS # 0.2 (0.0-0.7); EOS % 2.3 % (0-4.0); GRAN # 6.5 (1.4-6.5); GRAN % 68.2 % (42.2-75.2); HEMATOCRIT 38.8 % (37.0-47.0); HEMOGLOBIN 12.5 g/dl (12.5-16.0); LYMPH # 2.2 (1.2-3.4); LYMPH % 22.7 % (20.0-51.0); MEAN CELL VOLUME 99 fl (80.0-100.0); MEAN CORPUSCULAR HEMOGLOBIN 32 pg (27.0-31.0); MEAN CORPUSCULAR HGB CONC 32 g/dl (33.0-37.0); MEAN PLATELET VOLUME 10.4 fl (7.4-10.4); MONO # 0.6 (0.1-0.6); PLATELET COUNT 204 K/mm3 (130-400); RED BLOOD COUNT 3.92 M/mm3 (4.10-5.30); REDCELL DISTRIBUTION WIDTH-CV 13.6 % (11.5-14.5)
[2018-12-04 10:05] LABS: ALANINE AMINOTRANSFERASE < 6 U/L (9-52); ALBUMIN 3.8 gm/dL (3.5-5.0); ALKALINE PHOSPHATASE 70 U/L (50-136); ANION GAP 8 mmol/L (7-16); AST,SGOT 30 U/L (15-37); BILIRUBIN,TOTAL 0.4 mg/dL (0.0-1.0); BLOOD UREA NITROGEN 26 mg/dL (7-17); CARBON DIOXIDE 24 mmol/L (22-30); CHLORIDE 108 mmol/L (98-107); CREATININE, serum 1.02 (0.52-1.25); GLUCOSE 93 mg/dL (74-106); POTASSIUM 4.3 mmol/L (3.4-5.0); SODIUM 140 mmol/L (137-145); TOTAL PROTEIN 6.7 gm/dL (6.4-8.2)
[2018-12-04] MEDS ORDERED: MEDROL 4MG DOSPA4 MG PO (12:12)
[2018-12-04] MEDS ORDERED: DOXYCYCLINE 10100 MG PO (12:12)
[2018-12-04] MEDS ORDERED: ALBUTEROL0.83 MG/ML IH (12:14)
[2018-12-04] MEDS ORDERED: NEB MC ×2 (12:15→12:30)
[2018-12-04 12:53] VITALS: BP 121/42; PULSE 79; TEMP 97.2
== END 2018-12-04 12:53 | disposition home or self-care (01) ==
LOC: COL.ER 09:31
PROVIDERS: Emergency Medicine
DX: J44.1 Chronic obstructive pulmonary disease with (acute) exacerbation (principal)
CPT/HCPCS: J7030; J7512

== ENCOUNTER 2019-03-05 12:01 | Emergency (ER) | payer MEDICARE, MEDICAID ==
[~2019-03-05] VITALS: Ht 160 cm; Wt 81.8 kg
[~2019-03-05 12:01] MED LIST changes: +ALBUTEROL0.83 MG/ML IH; +NEB MC
[2019-03-05 12:02] VITALS: TEMP 97.8
[2019-03-05 12:28] LABS: BASO % 0.6 % (0.0-2.0); EOS # 0.2 (0.0-0.7); EOS % 2.6 % (0-4.0); GRAN # 4.1 (1.4-6.5); GRAN % 59.6 % (42.2-75.2); HEMATOCRIT 37.7 % (37.0-47.0); HEMOGLOBIN 12.1 g/dl (12.5-16.0); LYMPH % 29.5 % (20.0-51.0); MEAN CELL VOLUME 99 fl (80.0-100.0); MEAN CORPUSCULAR HEMOGLOBIN 32 pg (27.0-31.0); MEAN CORPUSCULAR HGB CONC 32 g/dl (33.0-37.0); MEAN PLATELET VOLUME 10.2 fl (7.4-10.4); MONO # 0.5 (0.1-0.6); MONO % 7.4 % (1.7-9.3); PLATELET COUNT 195 K/mm3 (130-400)
[2019-03-05 12:33] LABS: INR 1.8 (0.8-3.0); PROTHROMBIN TIME 21.6 SECONDS (9.7-12.8)
[2019-03-05 12:36] LABS: PARTIAL THROMBOPLASTIN TIME 39.6 SECONDS (26.0-37.0)
[2019-03-05 12:39] LABS: ALBUMIN 3.6 gm/dL (3.5-5.0); BILIRUBIN,TOTAL 0.2 mg/dL (0.0-1.0); CALCIUM 8.9 mg/dL (8.4-10.2); CREATININE, serum 1.01 (0.52-1.25); POTASSIUM 4.3 mmol/L (3.4-5.0); TOTAL PROTEIN 6.6 gm/dL (6.4-8.2)
[2019-03-05 13:15] VITALS: BP 145/50; PULSE 60
== END 2019-03-05 13:45 | disposition home or self-care (01) ==
LOC: COL.ER 12:01
PROVIDERS: Emergency Medicine
DX: G40.909 Epilepsy, unspecified, not intractable, without status epilepticus (principal); R04.0 Epistaxis; J44.9 Chronic obstructive pulmonary disease, unspecified; I25.10 Atherosclerotic heart disease of native coronary artery without angina pectoris; Z79.01 Long term (current) use of anticoagulants

== ENCOUNTER 2019-03-21 17:43 | Emergency (ER) | payer MEDICARE, MEDICAID ==
[~2019-03-21] VITALS: Ht 154.9 cm; Wt 84.1 kg
[2019-03-21 17:44] VITALS: TEMP 98
[2019-03-21 18:35] LABS: BASO % 0.4 % (0.0-2.0); EOS # 0.2 (0.0-0.7); EOS % 1.9 % (0-4.0); GRAN # 5.5 (1.4-6.5); GRAN % 69.2 % (42.2-75.2); HEMATOCRIT 38.5 % (37.0-47.0); HEMOGLOBIN 12.1 g/dl (12.5-16.0); LYMPH # 1.8 (1.2-3.4); LYMPH % 22.4 % (20.0-51.0); MEAN CELL VOLUME 100 fl (80.0-100.0); MEAN CORPUSCULAR HEMOGLOBIN 31 pg (27.0-31.0); MEAN CORPUSCULAR HGB CONC 31 g/dl (33.0-37.0); MEAN PLATELET VOLUME 10.3 fl (7.4-10.4); MONO # 0.5 (0.1-0.6); PLATELET COUNT 190 K/mm3 (130-400); RED BLOOD COUNT 3.87 M/mm3 (4.10-5.30); REDCELL DISTRIBUTION WIDTH-CV 14.1 % (11.5-14.5)
[2019-03-21 18:39] LABS: ALBUMIN 3.7 gm/dL (3.5-5.0); BILIRUBIN,TOTAL 0.2 mg/dL (0.0-1.0); CALCIUM 8.7 mg/dL (8.4-10.2); CREATININE, serum 1.03 (0.52-1.25); POTASSIUM 4.3 mmol/L (3.4-5.0); TOTAL PROTEIN 6.6 gm/dL (6.4-8.2)
[2019-03-21 18:45] LABS: INR 1.5 (0.8-3.0); PROTHROMBIN TIME 18.1 SECONDS (9.7-12.8)
[2019-03-21 20:29] VITALS: BP 138/47; PULSE 92
== END 2019-03-21 20:29 | disposition home or self-care (01) ==
LOC: COL.ER 17:43
PROVIDERS: Emergency Medicine
DX: R04.0 Epistaxis (principal); R51 Headache; Z79.01 Long term (current) use of anticoagulants; Z86.79 Personal history of other diseases of the circulatory system
CPT/HCPCS: J7030

== ENCOUNTER 2019-05-12 14:50 | Emergency (ER) | payer MEDICARE, MEDICAID ==
[~2019-05-12] VITALS: Ht 162.6 cm; Wt 84.5 kg
[2019-05-12 14:51] VITALS: BP 168/72; TEMP 97.5
[2019-05-12 15:55] VITALS: PULSE 72
== END 2019-05-12 15:57 | disposition home or self-care (01) ==
LOC: COL.ER 14:50
DX: R04.0 Epistaxis (principal); I10 Essential (primary) hypertension; Z79.01 Long term (current) use of anticoagulants

== ENCOUNTER 2019-05-14 11:24 | Emergency (ER) | payer MEDICARE, MEDICAID ==
[~2019-05-14] VITALS: Ht 152.4 cm; Wt 85.0 kg
[2019-05-14 11:28] VITALS: TEMP 97.9
[2019-05-14] MEDS ORDERED: CEPHALEXIN500 M1 PO ×2 (11:48→13:31)
[2019-05-14 12:58] LABS: BASO % 0.6 % (0.0-2.0); EOS # 0.2 (0.0-0.7); EOS % 2.3 % (0-4.0); GRAN # 3.7 (1.4-6.5); GRAN % 56.6 % (42.2-75.2); HEMATOCRIT 38.9 % (37.0-47.0); HEMOGLOBIN 12.5 g/dl (12.5-16.0); LYMPH # 2.2 (1.2-3.4); LYMPH % 33.7 % (20.0-51.0); MEAN CELL VOLUME 97 fl (80.0-100.0); MEAN CORPUSCULAR HEMOGLOBIN 31 pg (27.0-31.0); MEAN CORPUSCULAR HGB CONC 32 g/dl (33.0-37.0); MEAN PLATELET VOLUME 10.4 fl (7.4-10.4); MONO # 0.4 (0.1-0.6); MONO % 6.6 % (1.7-9.3); PLATELET COUNT 177 K/mm3 (130-400); RED BLOOD COUNT 4.02 M/mm3 (4.10-5.30); REDCELL DISTRIBUTION WIDTH-CV 13.6 % (11.5-14.5)
[2019-05-14 13:17] LABS: ALBUMIN 3.8 gm/dL (3.5-5.0); BILIRUBIN,TOTAL 0.4 mg/dL (0.0-1.0); C-REACTIVE PROTEIN 0.7 mg/dL (0.0-0.9); CREATININE, serum 1.09 (0.52-1.25); POTASSIUM 4.1 mmol/L (3.4-5.0); TOTAL PROTEIN 6.9 gm/dL (6.4-8.2)
[2019-05-14] MEDS ORDERED: NORCO 325 MG-51 TAB PO (13:30)
[2019-05-14 13:46] VITALS: BP 166/60; PULSE 60
[2019-05-15] MEDS ORDERED: NORCO 325 MG-51 TAB PO (16:57)
== END 2019-05-14 13:47 | disposition home or self-care (01) ==
LOC: COL.ER 11:24
PROVIDERS: Emergency Medicine
DX: R04.0 Epistaxis (principal); I10 Essential (primary) hypertension; I25.10 Atherosclerotic heart disease of native coronary artery without angina pectoris; J44.9 Chronic obstructive pulmonary disease, unspecified

== ENCOUNTER 2019-05-15 14:57 | Emergency (ER) | payer MEDICARE, MEDICAID ==
[~2019-05-15] VITALS: Ht 162.6 cm; Wt 85.0 kg
[~2019-05-15 14:57] MED LIST changes: +CEPHALEXIN500 M1 PO
[2019-05-15 14:58] VITALS: TEMP 97
[2019-05-15] MEDS ORDERED: NORCO 325 MG-51 TAB PO (16:57)
[2019-05-15 17:45] VITALS: BP 167/55; PULSE 73
== END 2019-05-15 17:45 | disposition home or self-care (01) ==
LOC: COL.ER 14:57
DX: R51 Headache (principal); J44.9 Chronic obstructive pulmonary disease, unspecified; Z86.718 Personal history of other venous thrombosis and embolism; Z86.711 Personal history of pulmonary embolism; Z79.01 Long term (current) use of anticoagulants

== ENCOUNTER → 2019-05-19 | Outpatient (CLI) | payer MEDICARE, MEDICAID | LOC: MC.RAD 09:25 | DX: N63.20 Unspecified lump in the left breast, unspecified quadrant (principal); Z98.82 Breast implant status; Z85.3 Personal history of malignant neoplasm of breast | CPT/HCPCS: G0279 ==

== ENCOUNTER 2019-12-04 10:39 | Emergency (ER) | payer MEDICARE, MEDICAID ==
[~2019-12-04] VITALS: Ht 162.6 cm; Wt 82.7 kg
[2019-12-04 10:49] VITALS: TEMP 98.1
[2019-12-04] MEDS ORDERED: LASIX 20MG TABL20 MG PO (12:11)
[2019-12-04] MEDS ORDERED: K-TAB20 PO (12:11)
[2019-12-04 12:20] VITALS: BP 140/60; PULSE 70
== END 2019-12-04 12:25 | disposition home or self-care (01) ==
LOC: COL.ER 10:39
DX: R22.43 Localized swelling, mass and lump, lower limb, bilateral (principal); F41.9 Anxiety disorder, unspecified; F32.9 Major depressive disorder, single episode, unspecified; F17.210 Nicotine dependence, cigarettes, uncomplicated; Z86.718 Personal history of other venous thrombosis and embolism; Z95.0 Presence of cardiac pacemaker; Z85.3 Personal history of malignant neoplasm of breast; Z86.79 Personal history of other diseases of the circulatory system; Z79.01 Long term (current) use of anticoagulants; Z88.8 Allergy status to other drugs, medicaments and biological substances; Z88.6 Allergy status to analgesic agent

== ENCOUNTER 2020-03-25 12:40 | Emergency (ER) | payer MEDICARE, MEDICAID ==
[~2020-03-25] VITALS: Ht 157.5 cm; Wt 84.1 kg
[~2020-03-25 12:40] MED LIST changes: +K-TAB20 PO; +LASIX 20MG TABL20 MG PO
[2020-03-25 12:43] VITALS: TEMP 97.8
[2020-03-25 13:28] LABS: BASO % 0.4 % (0.0-2.0); EOS # 0.1 (0.0-0.7); EOS % 1.9 % (0-4.0); GRAN # 4.8 (1.4-6.5); GRAN % 69.1 % (42.2-75.2); HEMOGLOBIN 11.6 g/dl (12.5-16.0); LYMPH # 1.6 (1.2-3.4); LYMPH % 22.9 % (20.0-51.0); MEAN CELL VOLUME 96 fl (80.0-100.0); MEAN CORPUSCULAR HEMOGLOBIN 31 pg (27.0-31.0); MEAN CORPUSCULAR HGB CONC 33 g/dl (33.0-37.0); MEAN PLATELET VOLUME 10.8 fl (7.4-10.4); MONO # 0.4 (0.1-0.6); MONO % 5.6 % (1.7-9.3); PLATELET COUNT 199 K/mm3 (130-400); RED BLOOD COUNT 3.74 M/mm3 (4.10-5.30)
[2020-03-25 13:34] LABS: HEMATOCRIT 35.7 % (37.0-47.0)
[2020-03-25 13:36] LABS: INR 2.2 (0.8-3.0); PROTHROMBIN TIME 24.8 SECONDS (9.7-12.8)
[2020-03-25 13:39] LABS: PARTIAL THROMBOPLASTIN TIME 34.3 SECONDS (26.0-37.0)
[2020-03-25 13:42] LABS: ALANINE AMINOTRANSFERASE 11 U/L (4-34); ALBUMIN 3.3 gm/dL (3.5-5.0); ALKALINE PHOSPHATASE 74 U/L (50-136); ANION GAP 3 mmol/L (7-16); AST,SGOT 37 U/L (15-37); BILIRUBIN,TOTAL 0.4 mg/dL (0.0-1.0); BLOOD UREA NITROGEN 24 mg/dL (7-17); CALCIUM 8.7 mg/dL (8.4-10.2); CARBON DIOXIDE 27 mmol/L (22-30); CHLORIDE 107 mmol/L (98-107); CREATININE, serum 1.03 (0.52-1.25); GLUCOSE 91 mg/dL (74-106); POTASSIUM 4.5 mmol/L (3.4-5.0); SODIUM 137 mmol/L (137-145)
[2020-03-25 14:02] LABS: TROPONIN-I < 0.012 ng/mL (0.000-0.035)
[2020-03-25 14:14] LABS: COLLECTION METHOD CLEAN CATCH
[2020-03-25 14:21] LABS: PH 5 (5-8); SQUAMOUS EPITHELIAL 0-2 /hpf; URINE APPEARANCE Clear; URINE BACTERIA None Seen /hpf; URINE BILIRUBIN Negative (NEGATIVE); URINE BLOOD Negative (NEGATIVE); URINE COLOR Yellow; URINE GLUCOSE Negative (NEGATIVE); URINE KETONE Negative (NEGATIVE); URINE LEUKOCYTE ESTERASE Negative (NEGATIVE); URINE NITRATE Negative (NEGATIVE); URINE PROTEIN(semi-quant) Negative (NEGATIVE); URINE RBC 0-2 /hpf; URINE UROBILINOGEN Negative (NEGATIVE); URINE WBC 0-2 /hpf
[2020-03-25 14:37] LABS: LIPASE 147 U/L (23-300)
[2020-03-25] MEDS ORDERED: LIDODERM 5% PATC1 EA TP (15:55)
[2020-03-25 15:56] VITALS: BP 136/53; PULSE 59
== END 2020-03-25 16:15 | disposition home or self-care (01) ==
LOC: COL.ER 12:40
PROVIDERS: Emergency Medicine; Physician Assistant
DX: G40.909 Epilepsy, unspecified, not intractable, without status epilepticus (principal); I10 Essential (primary) hypertension; E78.5 Hyperlipidemia, unspecified; J44.9 Chronic obstructive pulmonary disease, unspecified; Z20.822 Contact with and (suspected) exposure to COVID-19; Z86.711 Personal history of pulmonary embolism; Z95.0 Presence of cardiac pacemaker; Z90.89 Acquired absence of other organs; Z85.3 Personal history of malignant neoplasm of breast; Z85.118 Personal history of other malignant neoplasm of bronchus and lung; Z88.5 Allergy status to narcotic agent; Z88.6 Allergy status to analgesic agent; Z79.01 Long term (current) use of anticoagulants; Z79.51 Long term (current) use of inhaled steroids
CPT/HCPCS: Q9967

== ENCOUNTER 2020-10-28 02:00 | Observation (INO) | payer MEDICARE, MEDICAID ==
[~2020-10-28] VITALS: Ht 162.6 cm; Wt 89.0 kg
[2020-10-28] VITALS (11 sets, daily range): BP systolic 92–141; BP diastolic 31–70; PULSE 60–75; TEMP 97.5–99
[~2020-10-28 02:00] MED LIST changes: -DYRENIUM 50MG C50 MG PO; +LIDODERM 5% PATC1 EA TP
[2020-10-28 02:23] LABS: BASO # 0.1 (0.0-0.2); BASO % 0.9 % (0.0-2.0); EOS # 0.2 (0.0-0.7); EOS % 2.9 % (0-4.0); GRAN # 3.8 (1.4-6.5); GRAN % 54.3 % (42.2-75.2); HEMATOCRIT 39.5 % (37.0-47.0); HEMOGLOBIN 12.6 g/dl (12.5-16.0); LYMPH # 2.5 (1.2-3.4); LYMPH % 36.1 % (20.0-51.0); MEAN CELL VOLUME 99 fl (80.0-100.0); MEAN CORPUSCULAR HEMOGLOBIN 32 pg (27.0-31.0); MEAN CORPUSCULAR HGB CONC 32 g/dl (33.0-37.0); MEAN PLATELET VOLUME 10.5 fl (7.4-10.4); MONO # 0.4 (0.1-0.6); MONO % 5.5 % (1.7-9.3); PLATELET COUNT 197 K/mm3 (130-400); RED BLOOD COUNT 3.99 M/mm3 (4.10-5.30); REDCELL DISTRIBUTION WIDTH-CV 14.2 % (11.5-14.5)
[2020-10-28 02:33] LABS: ALANINE AMINOTRANSFERASE 13 U/L (4-34); ALBUMIN 3.5 gm/dL (3.5-5.0); ALKALINE PHOSPHATASE 69 U/L (50-136); ANION GAP 4 mmol/L (7-16); AST,SGOT 35 U/L (15-37); BILIRUBIN,TOTAL 0.4 mg/dL (0.0-1.0); BLOOD UREA NITROGEN 25 mg/dL (7-17); CALCIUM 8.6 mg/dL (8.4-10.2); CARBON DIOXIDE 27 mmol/L (22-30); CHLORIDE 108 mmol/L (98-107); CREATININE, serum 1.06 (0.52-1.25); GLUCOSE 137 mg/dL (74-106); POTASSIUM 4.5 mmol/L (3.4-5.0); SODIUM 139 mmol/L (137-145); TOTAL PROTEIN 6.5 gm/dL (6.4-8.2)
[2020-10-28 02:45] LABS: TROPONIN-I < 0.012 ng/mL (0.000-0.035)
[2020-10-28 03:00] LABS: CREATINE KINASE 48 U/L (30-135)
[2020-10-28] MEDS ORDERED: MULTIVITAMIN SEN PO (04:48)
[2020-10-28] MEDS ORDERED: MASON NATURAL2000 IU PO (04:48)
[2020-10-28] MEDS ORDERED: INCRUSE EL62.5 MCG/A IH (04:50)
[2020-10-28 11:27] LABS: INR 1.3 (0.8-3.0); PROTHROMBIN TIME 14.9 SECONDS (9.7-12.8)
[2020-10-28 11:29] LABS: PARTIAL THROMBOPLASTIN TIME 30.2 SECONDS (26.0-37.0)
--- NOTE | 2020-10-28 12:49 | NUR ---
cylinder worker met with patient to discuss discharge plan. Patient lives at home by herself in [place]. Has a daughter Giovanna ([phone]) who lives in [place]. Patient states she in mostly independent, however has a lot of support from Giovanna with the cooking and cleaning. Patient states she used to have a walker and cane to get around but has not used them for a long time. Patient is on oxygen within room and reports she uses it at home as well due to her COPD.Patient states she receives her oxygen from [facility].Patient's PCP is Dr. Jennifer Gottlieb with [facility] and uses [facility] for perscriptions. Patient states she does have a DPOA-HC established and has designated Giovanna as her agent. Believes she has a copy at home. cylinder worker called 's office to obtain a copy to no success. Patient plans to discharge home. *Discharge Plan: Home when ready*
--- NOTE | 2020-10-28 13:18 | NUR ---
Contacted Hospitalist, patient called out states that she feels like she cannot breath and needs her rescue inhailer. Notified RT.
--- NOTE | 2020-10-28 14:00 | NUR ---
Contacted Hospitalist about restarting home meds. No new orders at this time.
--- NOTE | 2020-10-28 14:41 | NUR ---
Patient down to laboratory specialist by bed.
--- NOTE | 2020-10-28 15:40 | NUR ---
Patient back to room from heart cath, TR band to left wrist. Denies further needs at this time.
--- NOTE | 2020-10-28 18:42 | NUR ---
Patient doing well post heart cath, contacted hospitalist for tylenol orders, patient complaining of headach. VSS. Patient denies further needs at this time.
--- NOTE | 2020-10-28 19:25 | NUR ---
Discharge instructions provided to patient. Educated on when to call provier and scheduling follow up appointments. Attempted to call daughter to review discharge instructions with patient. TR band to right radial removed, no bleeding noted. Denies further needs at this time. When this nurse spoke with daughter earlier today she stated she would call back at 1999 to see if she could pickling grader patient.
--- NOTE | 2020-10-28 19:50 | NUR ---
DC'D SL FROM RT AC, ANGIOCATH INTACT. DAUGHTER IS ON HER WAY TO BROOM MACHINE OPERATOR PT.
--- NOTE | 2020-10-28 19:56 | NUR ---
DISCHARGED VIA W/C TO PRIVATE CAR. PERSONAL BELONGINGS AND COPY OF DISCHARGE INSTRUCTIONS SENT WITH PATIENT.
== END 2020-10-28 19:56 | disposition home or self-care (01) ==
LOC: COL.ER 02:00 → SURG 06:06
PROVIDERS: Emergency Medicine; ADMIT Internal Medicine
DX: I25.10 Atherosclerotic heart disease of native coronary artery without angina pectoris (principal); I10 Essential (primary) hypertension; I25.2 Old myocardial infarction; I26.99 Other pulmonary embolism without acute cor pulmonale; J44.9 Chronic obstructive pulmonary disease, unspecified; M19.90 Unspecified osteoarthritis, unspecified site; R09.02 Hypoxemia; F17.210 Nicotine dependence, cigarettes, uncomplicated; F41.9 Anxiety disorder, unspecified; F32.9 Major depressive disorder, single episode, unspecified; Z79.899 Other long term (current) drug therapy; Z85.3 Personal history of malignant neoplasm of breast; Z86.73 Personal history of transient ischemic attack (TIA), and cerebral infarction without residual deficits; Z95.0 Presence of cardiac pacemaker; Z86.718 Personal history of other venous thrombosis and embolism; Z92.3 Personal history of irradiation
CPT/HCPCS: G0378; J1644; J2250; Q9967

== ENCOUNTER → 2020-12-22 | Outpatient (CLI) | payer MEDICARE, MEDICAID ==
[~2020-12-22] MED LIST changes: +MASON NATURAL2000 IU PO; +MULTIVITAMIN SEN PO
== END ==
LOC: COL.VAS 13:56
DX: I70.203 Unspecified atherosclerosis of native arteries of extremities, bilateral legs (principal)

== ENCOUNTER 2021-02-05 21:36 | Emergency (ER) | payer MEDICARE, MEDICAID ==
[~2021-02-05] VITALS: Ht 160 cm; Wt 81.8 kg
[2021-02-05 22:26] LABS: BASO # 0.1 K/mm3 (0.0-0.2); BASO % 0.8 % (0.0-2.0); EOS # 0.2 K/mm3 (0.0-0.7); EOS % 2.6 % (0-4.0); GRAN # 3.4 K/mm3 (1.4-6.5); GRAN % 46.9 % (42.2-75.2); HEMOGLOBIN 11.8 g/dl (12.5-16.0); LYMPH # 3.1 K/mm3 (1.2-3.4); LYMPH % 42.6 % (20.0-51.0); MEAN CELL VOLUME 96 fl (80.0-100.0); MEAN CORPUSCULAR HEMOGLOBIN 31 pg (27.0-31.0); MEAN CORPUSCULAR HGB CONC 32 g/dl (33.0-37.0); MEAN PLATELET VOLUME 10.2 fl (7.4-10.4); MONO # 0.5 K/mm3 (0.1-0.6); MONO % 6.8 % (1.7-9.3); PLATELET COUNT 206 K/mm3 (130-400); RED BLOOD COUNT 3.79 M/mm3 (4.10-5.30); REDCELL DISTRIBUTION WIDTH-CV 13.9 % (11.5-14.5)
[2021-02-05 22:38] LABS: ALBUMIN 3.2 gm/dL (3.4-4.8); BILIRUBIN,TOTAL 0.3 mg/dL (0.2-1.2); CALCIUM 9.2 mg/dL (8.4-10.2); CREATININE, serum 1.11 mg/dL (0.57-1.11); HEMATOCRIT 36.4 % (37.0-47.0); POTASSIUM 4.4 mmol/L (3.5-4.5); TOTAL PROTEIN 6.4 gm/dL (6.2-8.1)
[2021-02-06] MEDS ORDERED: NORCO 325 MG-51 TAB PO ×3 (01:06→14:43)
[2021-02-06 01:35] VITALS: BP 142/79; PULSE 68; TEMP 98
== END 2021-02-06 01:35 | disposition home or self-care (01) ==
LOC: COL.ER 21:36
PROVIDERS: Personal Emergency Response Attendant
DX: M79.604 Pain in right leg (principal); I10 Essential (primary) hypertension; I25.10 Atherosclerotic heart disease of native coronary artery without angina pectoris; E78.5 Hyperlipidemia, unspecified; F17.210 Nicotine dependence, cigarettes, uncomplicated; Z86.718 Personal history of other venous thrombosis and embolism; Z88.5 Allergy status to narcotic agent; Z79.01 Long term (current) use of anticoagulants; Z79.899 Other long term (current) drug therapy
CPT/HCPCS: J2270; J2405; Q9967

== ENCOUNTER 2021-04-24 14:28 | Emergency (ER) | payer MEDICARE, MEDICAID ==
[~2021-04-24] VITALS: Ht 160 cm; Wt 86.4 kg
[2021-04-24 14:35] VITALS: BP 137/47; TEMP 97.5
[2021-04-24 16:14] LABS: BASO # 0.1 K/mm3 (0.0-0.2); BASO % 0.8 % (0.0-2.0); EOS # 0.2 K/mm3 (0.0-0.7); EOS % 2.6 % (0.0-4.0); GRAN # 3.4 K/mm3 (1.4-6.5); GRAN % 54.7 % (42.2-75.2); HEMATOCRIT 38.2 % (37.0-47.0); HEMOGLOBIN 12.2 g/dl (12.5-16.0); LYMPH # 2.2 K/mm3 (1.2-3.4); LYMPH % 35.8 % (20.0-51.0); MEAN CELL VOLUME 96 fl (80.0-100.0); MEAN CORPUSCULAR HEMOGLOBIN 31 pg (27-31); MEAN CORPUSCULAR HGB CONC 32 g/dl (33.0-37.0); MONO # 0.4 K/mm3 (0.1-0.6); MONO % 5.8 % (1.7-9.3); PLATELET COUNT 212 K/mm3 (130-400); RED BLOOD COUNT 3.98 M/mm3 (4.10-5.30); REDCELL DISTRIBUTION WIDTH-CV 13.8 % (11.5-14.5)
[2021-04-24 16:21] LABS: INR 2.1 (0.8-3.0); PROTHROMBIN TIME 23.1 SECONDS (9.7-12.8)
[2021-04-24 16:31] LABS: ALBUMIN 3.2 gm/dL (3.4-4.8); CALCIUM 8.8 mg/dL (8.4-10.2); CREATININE, serum 1.1 mg/dL (0.57-1.11); POTASSIUM 4.5 mmol/L (3.5-4.5); TOTAL PROTEIN 6.3 gm/dL (6.2-8.1)
[2021-04-24 16:50] LABS: BILIRUBIN,TOTAL 0.4 mg/dL (0.2-1.2)
[2021-04-24 17:12] VITALS: PULSE 74
== END 2021-04-24 17:12 | disposition home or self-care (01) ==
LOC: COL.ER 14:28
PROVIDERS: Personal Emergency Response Attendant
DX: R04.0 Epistaxis (principal); I25.10 Atherosclerotic heart disease of native coronary artery without angina pectoris; E78.5 Hyperlipidemia, unspecified; J44.9 Chronic obstructive pulmonary disease, unspecified; I10 Essential (primary) hypertension; F17.210 Nicotine dependence, cigarettes, uncomplicated; Z86.73 Personal history of transient ischemic attack (TIA), and cerebral infarction without residual deficits; Z88.6 Allergy status to analgesic agent; Z79.01 Long term (current) use of anticoagulants; Z79.899 Other long term (current) drug therapy

== ENCOUNTER 2021-04-30 16:42 | Emergency (ER) | payer MEDICARE, MEDICAID ==
[~2021-04-30] VITALS: Ht 167.6 cm; Wt 90.9 kg
[2021-04-30 16:43] VITALS: TEMP 95.7
[2021-04-30 16:56] LABS: BASO # 0.1 K/mm3 (0.0-0.2); BASO % 0.8 % (0.0-2.0); EOS # 0.2 K/mm3 (0.0-0.7); EOS % 3.1 % (0.0-4.0); GRAN # 3.8 K/mm3 (1.4-6.5); GRAN % 53.2 % (42.2-75.2); HEMATOCRIT 38.2 % (37.0-47.0); HEMOGLOBIN 12.2 g/dl (12.5-16.0); LYMPH # 2.5 K/mm3 (1.2-3.4); LYMPH % 35.5 % (20.0-51.0); MEAN CELL VOLUME 97 fl (80.0-100.0); MEAN CORPUSCULAR HEMOGLOBIN 31 pg (27-31); MEAN CORPUSCULAR HGB CONC 32 g/dl (33.0-37.0); MEAN PLATELET VOLUME 10.3 fl (7.4-10.4); MONO # 0.5 K/mm3 (0.1-0.6); MONO % 7.1 % (1.7-9.3); PLATELET COUNT 224 K/mm3 (130-400); RED BLOOD COUNT 3.94 M/mm3 (4.10-5.30); REDCELL DISTRIBUTION WIDTH-CV 14.1 % (11.5-14.5)
[2021-04-30 17:05] LABS: INR 2.1 (0.8-3.0); PROTHROMBIN TIME 23.3 SECONDS (9.7-12.8)
[2021-04-30 17:17] LABS: ALBUMIN 3.1 gm/dL (3.4-4.8); BILIRUBIN,TOTAL 0.3 mg/dL (0.2-1.2); CALCIUM 8.8 mg/dL (8.4-10.2); CREATININE, serum 1.22 mg/dL (0.57-1.11); POTASSIUM 4.8 mmol/L (3.5-4.5); TOTAL PROTEIN 6.3 gm/dL (6.2-8.1)
[2021-04-30] MEDS ORDERED: NORCO 325 MG-51 TAB PO (19:07)
[2021-04-30 19:21] VITALS: BP 154/84; PULSE 87
== END 2021-04-30 19:21 | disposition home or self-care (01) ==
LOC: COL.ER 16:42
PROVIDERS: Personal Emergency Response Attendant
DX: R04.0 Epistaxis (principal); F17.200 Nicotine dependence, unspecified, uncomplicated; Z79.01 Long term (current) use of anticoagulants
CPT/HCPCS: J2270; J2405; Q9967

== ENCOUNTER 2021-05-22 11:33 | Emergency (ER) | payer MEDICARE, MEDICAID ==
[~2021-05-22] VITALS: Ht 157.5 cm; Wt 85.5 kg
[2021-05-22 11:58] LABS: BASO # 0.1 K/mm3 (0.0-0.2); BASO % 0.9 % (0.0-2.0); EOS # 0.2 K/mm3 (0.0-0.7); EOS % 3.4 % (0.0-4.0); GRAN # 3.5 K/mm3 (1.4-6.5); GRAN % 59.2 % (42.2-75.2); HEMATOCRIT 38.8 % (37.0-47.0); HEMOGLOBIN 12.7 g/dl (12.5-16.0); LYMPH # 1.8 K/mm3 (1.2-3.4); LYMPH % 30.5 % (20.0-51.0); MEAN CELL VOLUME 96 fl (80.0-100.0); MEAN CORPUSCULAR HEMOGLOBIN 31 pg (27-31); MEAN CORPUSCULAR HGB CONC 33 g/dl (33.0-37.0); MEAN PLATELET VOLUME 10.5 fl (7.4-10.4); MONO # 0.3 K/mm3 (0.1-0.6); MONO % 5.8 % (1.7-9.3); PLATELET COUNT 189 K/mm3 (130-400); RED BLOOD COUNT 4.05 M/mm3 (4.10-5.30); REDCELL DISTRIBUTION WIDTH-CV 14.3 % (11.5-14.5)
[2021-05-22 12:13] LABS: ALBUMIN 3.4 gm/dL (3.4-4.8); BILIRUBIN,TOTAL 0.3 mg/dL (0.2-1.2); CALCIUM 9.3 mg/dL (8.4-10.2); CREATININE, serum 1.16 mg/dL (0.57-1.11); TOTAL PROTEIN 6.6 gm/dL (6.2-8.1)
[2021-05-22 12:19] LABS: POTASSIUM 5.3 mmol/L (3.5-4.5)
[2021-05-22 12:24] LABS: TROPONIN-I 0.013 ng/mL (0.00-0.033)
[2021-05-22] MEDS ORDERED: PREDNISONE50 MG PO (13:36)
[2021-05-22] MEDS ORDERED: DOXYCYCLINE 10100 MG PO (13:36)
[2021-05-22 14:03] VITALS: BP 158/67; PULSE 84; TEMP 98
== END 2021-05-22 14:03 | disposition home or self-care (01) ==
LOC: COL.ER 11:33
PROVIDERS: Emergency Medicine
DX: J44.1 Chronic obstructive pulmonary disease with (acute) exacerbation (principal); J98.4 Other disorders of lung; F17.200 Nicotine dependence, unspecified, uncomplicated; Z99.81 Dependence on supplemental oxygen; Z79.01 Long term (current) use of anticoagulants

== ENCOUNTER 2021-06-22 11:51 | Emergency (ER) | payer MEDICARE, MEDICAID ==
[~2021-06-22] VITALS: Ht 157.5 cm; Wt 84.1 kg
[~2021-06-22 11:51] MED LIST changes: +PREDNISONE50 MG PO
[2021-06-22 12:09] LABS: BASO % 0.6 % (0.0-2.0); EOS # 0.2 K/mm3 (0.0-0.7); EOS % 2.3 % (0.0-4.0); GRAN # 5.1 K/mm3 (1.4-6.5); GRAN % 72.7 % (42.2-75.2); HEMATOCRIT 38.9 % (37.0-47.0); HEMOGLOBIN 12.7 g/dl (12.5-16.0); LYMPH # 1.3 K/mm3 (1.2-3.4); LYMPH % 18.5 % (20.0-51.0); MEAN CELL VOLUME 95 fl (80.0-100.0); MEAN CORPUSCULAR HEMOGLOBIN 31 pg (27-31); MEAN CORPUSCULAR HGB CONC 33 g/dl (33.0-37.0); MEAN PLATELET VOLUME 10.5 fl (7.4-10.4); MONO # 0.4 K/mm3 (0.1-0.6); MONO % 5.8 % (1.7-9.3); PLATELET COUNT 197 K/mm3 (130-400); REDCELL DISTRIBUTION WIDTH-CV 14.1 % (11.5-14.5)
[2021-06-22 12:16] LABS: COLLECTION METHOD CATHETER
[2021-06-22 12:27] LABS: BILIRUBIN,TOTAL 0.3 mg/dL (0.2-1.2); C-REACTIVE PROTEIN 0.31 mg/dL (0.00-0.50); CALCIUM 8.8 mg/dL (8.4-10.2); CREATININE, serum 1.09 mg/dL (0.57-1.11); POTASSIUM 4.4 mmol/L (3.5-4.5); TOTAL PROTEIN 6.3 gm/dL (6.2-8.1)
[2021-06-22 12:47] LABS: PH 5 (5-8); SQUAMOUS EPITHELIAL None Seen /hpf (0-10); URINE APPEARANCE Hazy (CLEAR/HAZY); URINE BACTERIA None Seen /hpf (NONE SEEN); URINE BILIRUBIN Negative (NEGATIVE); URINE BLOOD 1+ (NEGATIVE); URINE COLOR Yellow (YELLOW); URINE GLUCOSE Negative (NEGATIVE); URINE KETONE Negative (NEGATIVE); URINE LEUKOCYTE ESTERASE Negative (NEGATIVE); URINE NITRATE Negative (NEGATIVE); URINE PROTEIN(semi-quant) Negative (NEGATIVE); URINE RBC 0-2 /hpf (0-2); URINE UROBILINOGEN Negative (NEGATIVE)
[2021-06-22 12:47] LABS: PROLACTIN 14.4 ng/mL (5.18-26.53)
[2021-06-22 13:21] VITALS: BP 153/52; PULSE 60; TEMP 98.2
== END 2021-06-22 13:21 | disposition home or self-care (01) ==
LOC: COL.ER 11:51
PROVIDERS: Family Medicine
DX: G40.909 Epilepsy, unspecified, not intractable, without status epilepticus (principal)
CPT/HCPCS: J1953; J2405

== ENCOUNTER 2021-09-19 21:02 | Emergency (ER) | payer MEDICARE, MEDICAID ==
[~2021-09-19] VITALS: Ht 160 cm; Wt 85.0 kg
[2021-09-19] MEDS ORDERED: AMOXICILLIN 8751 TAB PO (22:45)
[2021-09-19 22:59] VITALS: BP 144/78; PULSE 59; TEMP 98.5
== END 2021-09-19 22:59 | disposition home or self-care (01) ==
LOC: COL.ER 21:02
DX: S61.451A Open bite of right hand, initial encounter (principal); F17.210 Nicotine dependence, cigarettes, uncomplicated; Z23 Encounter for immunization; W55.01XA Bitten by cat, initial encounter; Y92.009 Unspecified place in unspecified non-institutional (private) residence as the place of occurrence of the external cause

== ENCOUNTER 2021-10-02 02:41 | Emergency (ER) | payer MEDICARE, MEDICAID ==
[~2021-10-02] VITALS: Ht 160 cm; Wt 85.0 kg
[~2021-10-02 02:41] MED LIST changes: +AMOXICILLIN 8751 TAB PO
[2021-10-02 03:19] LABS: BASO # 0.1 K/mm3 (0.0-0.2); BASO % 1.3 % (0.0-2.0); EOS # 0.1 K/mm3 (0.0-0.7); EOS % 2.6 % (0.0-4.0); GRAN # 2.9 K/mm3 (1.4-6.5); GRAN % 64.1 % (42.2-75.2); HEMOGLOBIN 11.8 g/dl (12.5-16.0); LYMPH # 1.1 K/mm3 (1.2-3.4); LYMPH % 23.7 % (20.0-51.0); MEAN CELL VOLUME 97 fl (80.0-100.0); MEAN CORPUSCULAR HEMOGLOBIN 31 pg (27-31); MEAN CORPUSCULAR HGB CONC 32 g/dl (33.0-37.0); MEAN PLATELET VOLUME 10.7 fl (7.4-10.4); MONO # 0.4 K/mm3 (0.1-0.6); MONO % 8.1 % (1.7-9.3); PLATELET COUNT 148 K/mm3 (130-400); RED BLOOD COUNT 3.79 M/mm3 (4.10-5.30)
[2021-10-02 03:22] LABS: HEMATOCRIT 36.6 % (37.0-47.0)
[2021-10-02 03:36] LABS: BILIRUBIN,TOTAL 0.2 mg/dL (0.2-1.2); C-REACTIVE PROTEIN 0.51 mg/dL (0.00-0.50); CALCIUM 8.5 mg/dL (8.4-10.2); CREATININE, serum 1.1 mg/dL (0.57-1.11); POTASSIUM 4.7 mmol/L (3.5-4.5); TOTAL PROTEIN 6.2 gm/dL (6.2-8.1)
[2021-10-02] MEDS ORDERED: OMNICEF 300MG300 MG PO (04:27)
[2021-10-02] MEDS ORDERED: PREDNISONE20 MG PO (04:27)
[2021-10-02] MEDS ORDERED: CHERATUSSIN AC120 ML PO (04:28)
[2021-10-02 04:43] VITALS: BP 136/47; PULSE 77; TEMP 98.4
== END 2021-10-02 04:43 | disposition home or self-care (01) ==
LOC: COL.ER 02:41
PROVIDERS: Family Medicine
DX: J44.1 Chronic obstructive pulmonary disease with (acute) exacerbation (principal); Z88.5 Allergy status to narcotic agent; Z20.822 Contact with and (suspected) exposure to COVID-19
CPT/HCPCS: J2930; J7030

== ENCOUNTER 2021-10-04 10:26 | Emergency (ER) | payer MEDICARE, MEDICAID ==
[~2021-10-04] VITALS: Ht 162.6 cm; Wt 85.0 kg
[2021-10-04 10:27] VITALS: TEMP 97.6
[2021-10-04 11:17] LABS: BASO % 0.1 % (0.0-2.0); GRAN # 7.3 K/mm3 (1.4-6.5); GRAN % 84.4 % (42.2-75.2); HEMATOCRIT 39.2 % (37.0-47.0); HEMOGLOBIN 12.5 g/dl (12.5-16.0); LYMPH % 11.4 % (20.0-51.0); MEAN CELL VOLUME 98 fl (80.0-100.0); MEAN CORPUSCULAR HEMOGLOBIN 31 pg (27-31); MEAN CORPUSCULAR HGB CONC 32 g/dl (33.0-37.0); MEAN PLATELET VOLUME 10.2 fl (7.4-10.4); MONO # 0.3 K/mm3 (0.1-0.6); MONO % 3.9 % (1.7-9.3); PLATELET COUNT 165 K/mm3 (130-400); RED BLOOD COUNT 4.01 M/mm3 (4.10-5.30); REDCELL DISTRIBUTION WIDTH-CV 14.4 % (11.5-14.5)
[2021-10-04 11:29] LABS: ALBUMIN 3.5 gm/dL (3.4-4.8); BILIRUBIN,TOTAL 0.2 mg/dL (0.2-1.2); CALCIUM 8.8 mg/dL (8.4-10.2); CREATININE, serum 1.22 mg/dL (0.57-1.11); POTASSIUM 4.6 mmol/L (3.5-4.5); TOTAL PROTEIN 6.8 gm/dL (6.2-8.1)
[2021-10-04] MEDS ORDERED: NORCO 325 MG-51 TAB PO (12:11)
[2021-10-04] MEDS ORDERED: PREDNISONE20 MG PO (12:11)
[2021-10-04 12:26] VITALS: BP 130/59; PULSE 83
== END 2021-10-04 12:37 | disposition home or self-care (01) ==
LOC: COL.ER 10:26
PROVIDERS: Personal Emergency Response Attendant
DX: J44.1 Chronic obstructive pulmonary disease with (acute) exacerbation (principal); F17.210 Nicotine dependence, cigarettes, uncomplicated; Z87.09 Personal history of other diseases of the respiratory system
CPT/HCPCS: J1956; J2270; J2405; J2930

== ENCOUNTER 2021-10-20 10:36 | Observation (INO) | payer MEDICARE, MEDICAID ==
[~2021-10-20] VITALS: Ht 162.6 cm; Wt 86.0 kg
[2021-10-20 11:14] LABS: BASO % 0.6 % (0.0-2.0); EOS # 0.1 K/mm3 (0.0-0.7); EOS % 2.1 % (0.0-4.0); GRAN # 4.1 K/mm3 (1.4-6.5); GRAN % 65.9 % (42.2-75.2); HEMATOCRIT 37.9 % (37.0-47.0); HEMOGLOBIN 12.2 g/dl (12.5-16.0); LYMPH # 1.5 K/mm3 (1.2-3.4); MEAN CELL VOLUME 96 fl (80.0-100.0); MEAN CORPUSCULAR HEMOGLOBIN 31 pg (27-31); MEAN CORPUSCULAR HGB CONC 32 g/dl (33.0-37.0); MEAN PLATELET VOLUME 10.1 fl (7.4-10.4); MONO # 0.4 K/mm3 (0.1-0.6); MONO % 6.2 % (1.7-9.3); PLATELET COUNT 190 K/mm3 (130-400); RED BLOOD COUNT 3.93 M/mm3 (4.10-5.30); REDCELL DISTRIBUTION WIDTH-CV 14.3 % (11.5-14.5)
[2021-10-20 11:22] LABS: INR 2.7 (0.8-3.0); PROTHROMBIN TIME 31.4 SECONDS (9.7-12.8)
[2021-10-20 11:25] LABS: PARTIAL THROMBOPLASTIN TIME 44.5 SECONDS (26.0-37.0)
[2021-10-20 11:30] LABS: ALANINE AMINOTRANSFERASE 11 U/L (0-55); ALKALINE PHOSPHATASE 82 U/L (40-150); ANION GAP 10 mmol/L (7-16); AST,SGOT 15 U/L (5-34); BILIRUBIN,TOTAL 0.3 mg/dL (0.2-1.2); BLOOD UREA NITROGEN 15 mg/dL (10-20); CALCIUM 9.2 mg/dL (8.4-10.2); CARBON DIOXIDE 22 mmol/L (23-31); CHLORIDE 109 mmol/L (98-107); CREATININE, serum 1.04 mg/dL (0.57-1.11); GLUCOSE 82 mg/dL (70-99); POTASSIUM 4.6 mmol/L (3.5-4.5); SODIUM 141 mmol/L (136-145); TOTAL PROTEIN 6.4 gm/dL (6.2-8.1)
[2021-10-20 11:42] LABS: TROPONIN-I < 0.010 ng/mL (0.00-0.033)
[2021-10-20 16:30] VITALS: BP 165/49; PULSE 63; TEMP 97.7
--- NOTE | 2021-10-20 17:09 | NUR ---
Patient arrived to the unit, alert and oriented x 4, with HTN and an saturating 91-92 at room air. She coughs continuously and has little sputum production. Assessment intake done.
[2021-10-20] MEDS ORDERED: NEURONTIN100 MG/CAP PO (18:24)
--- NOTE | 2021-10-20 19:15 | NUR ---
Patient is resting right now, at room air. Continues with cough. Report given to oracle reports developer nurse.
[2021-10-20 20:22] VITALS: BP 143/49; PULSE 85; TEMP 98.6
[2021-10-21 00:05] VITALS: BP 136/44; PULSE 79; TEMP 97.5
[2021-10-21 04:50] VITALS: BP 137/52; PULSE 63; TEMP 98.1
[2021-10-21 08:00] VITALS: BP 117/33; BP 153/50; PULSE 57; PULSE 94; TEMP 97.4; TEMP 97.9
--- NOTE | 2021-10-21 10:25 | NUR ---
PT SITTING IN BED, ORDERING BREAKFAST AT THIS TIME, REQUEST FOR HER MORNING MEDICATIONS
[2021-10-21 11:02] LABS: CALCIUM 9.1 mg/dL (8.4-10.2); CREATININE, serum 1.49 mg/dL (0.57-1.11); POTASSIUM 4.7 mmol/L (3.5-4.5)
[2021-10-21 12:00] VITALS: BP 145/67; PULSE 84
--- NOTE | 2021-10-21 13:31 | NUR ---
Manager Retention prayed and offered support with patient while family was in room.
[2021-10-21 16:00] VITALS: BP 141/44; PULSE 73
--- NOTE | 2021-10-21 17:40 | NUR ---
PT HAD A CALM DAY, VSS, ORIENT AND ALERT X4, DUE MEDS GIVEN NO ADVERSE REACTION DOCUMENTED, RAISED COMPLAINTS OF BACK PAIN AND BILATERAL KNEE PAIN PT ON PRN MORHINE I.V. COUGH NOTED WITH CLEAR FROTHY SPUTUM SPECIMEN TAKEN TO THE LAB FOR C/S
--- NOTE | 2021-10-21 20:01 | NUR ---
TX GIVEN VIA MASK, TOLERATED WELL. PT ON ROOM AIR BEFORE AND AFTER TX. PT REQUESTED THAT I NOT WAKE HER FOR 0200 TX IF SLEEPING.
[2021-10-21 21:00] VITALS: BP 129/47; PULSE 69; TEMP 97.9
[2021-10-22 00:21] VITALS: BP 130/57; PULSE 95; TEMP 97.9
--- NOTE | 2021-10-22 02:11 | NUR ---
Pt alert and oriented. Calm and cooperative. Follows commands. Steady gait in room. Pt reported to me that she was very happy that she could ambulate around the room without oxygen or SOB. Pt denies chest pain/SOB at this time. Pt up to void. VS stable. On room air. Lungs sound clear. Pt continues to have a productive cough. Tolerating PO. Pt did request that she receive her gabapentin at 2300 instead of 2100 this evening. Shift assessment performed. Medications administered per orders and education provided. No significant skin issues noted. Fall precautions in place. phototypesetting equipment monitor on. Pt does not report any questions at this time. Bed low and locked, call douglas within reach. No new concerns at this time.
[2021-10-22 04:26] VITALS: BP 135/43; PULSE 66; TEMP 97.8
[2021-10-22 05:23] LABS: BASO % 0.3 % (0.0-2.0); EOS % 0.1 % (0.0-4.0); GRAN # 6.8 K/mm3 (1.4-6.5); GRAN % 66.5 % (42.2-75.2); HEMATOCRIT 37.5 % (37.0-47.0); HEMOGLOBIN 12.1 g/dl (12.5-16.0); LYMPH # 2.9 K/mm3 (1.2-3.4); LYMPH % 28.2 % (20.0-51.0); MEAN CELL VOLUME 95 fl (80.0-100.0); MEAN CORPUSCULAR HEMOGLOBIN 31 pg (27-31); MEAN CORPUSCULAR HGB CONC 32 g/dl (33.0-37.0); MEAN PLATELET VOLUME 10.1 fl (7.4-10.4); MONO # 0.5 K/mm3 (0.1-0.6); MONO % 4.7 % (1.7-9.3); PLATELET COUNT 203 K/mm3 (130-400); RED BLOOD COUNT 3.94 M/mm3 (4.10-5.30); REDCELL DISTRIBUTION WIDTH-CV 14.2 % (11.5-14.5)
--- NOTE | 2021-10-22 05:25 | NUR ---
PT BEGAN COMPLAINING OF LEFT SIDED CHEST PAIN AROUND 0515. VS WERE IMMEDIATELY ASSESSED: BP 164/49, HR 67, O2 93% ON ROOM AIR. PT STATED HER RIGHT LEG WAS ALSO HURTING FROM TOP TO BOTTOM. DENIES NUMBNESS/TINGLING OF THE RIGHT LEG. DENIES SOB. YANIRA SHAH. THE FOLLOWING VERBAL PHONE ORDER READBACKS WERE MADE: 1. CXR NOW STAT 2. EKG NOW STAT 3. TROPONIN LAB NOW 4. GIVE IV MORPHINE NOW 5. GIVE SUBLINGUAL NITROGLYCERIN NOW. ORDERS FOLLOWED PER PROVIDER. PT APPEARS TO HAVE LOTS OF ANXIETY AND BEGAN CRYING, SPEAKING INCOHERENTLY, AND QUIVERING HER LIP. PT STATED "SEIZURE" THE STATED "KEPPRA". PT IS ALERT AND ORIENTED AND ABLE TO SPEAK. I EDUCATED PT THAT HER PO KEPPRA WAS ADMINISTERED PER ORDERS AT THE BEGINNING OF THE EVENING. AROUND 0520 THE PT BEGAN TO REPORT CHEST PAIN RELIEF AFTER MORPHINE ADMINISTRATION. 1 SUBLINGUAL NITRO HAS BEEN ADMINISTERED, WILL ADMINISTER A SECOND AFTER 5 MINUTES. I AM AT BEDSIDE CONTINUOUSLY MONITORING THE PT. NO OTHER CHANGES AT THIS TIME.
[2021-10-22 05:37] LABS: CREATININE, serum 1.35 mg/dL (0.57-1.11); POTASSIUM 4.4 mmol/L (3.5-4.5)
[2021-10-22 05:45] LABS: TROPONIN-I 0.014 ng/mL (0.00-0.033)
--- NOTE | 2021-10-22 07:24 | NUR ---
Pt alert and oriented, resting at the current moment. Reports that the chest pain has completely stopped after ordered IV morphine and 2 sublingual nitroglycerin tablets. Pt still reports right leg pain. VS stable. On room air. Breathing has returned to normal rate. Pt is now calm and appears less anxious. Pt up to void overnight. Notified cardiology of pt's new cardiology consult this morning. Telemetry on. Fall precautions in place. Pt does not report any further questions. Bed low and locked, call douglas within reach. No new concerns at this time.
--- NOTE | 2021-10-22 07:33 | NUR ---
PT SLEEPING DURING BEDSIDE REPORT
[2021-10-22 08:00] VITALS: BP 127/41; PULSE 66; TEMP 98
[2021-10-22 12:00] VITALS: BP 107/34; PULSE 77; TEMP 97.8
--- NOTE | 2021-10-22 12:41 | NUR ---
SW met with patient to complete intake. Patient states that she lives with her daughter Giovanna Ceja [phone]. Patient states that she utilizes a walker, independent with ADL's, and uses [facility] only for cleaning services. PCP is Dr. Gottlieb, and pharmacy is [facility]. Patient provides that her daughter Giovanna has been appointed as DPOA/HC. Patient plans to return to her home with her daughter upon DC. SW will continue to follow. DC plan: home with daughter
[2021-10-22 16:00] VITALS: BP 98/33; PULSE 66; TEMP 99
--- NOTE | 2021-10-22 18:17 | NUR ---
PT HAD A CALM DAY, ORIENT AND ALERT X4, PT WAS ABLE TO AMBULATE SELF TO THE BATHROOM AND BACK TO BED. RAISED COMPLAINTS OF RIGHT KNEE PAIN, PT GIVEN PRN PAIN MEDICATIONS PRESCRIBED.OTHER DUE MEDICATIONS GIVEN NO ADVERSE REACTIONS NOTED.
--- NOTE | 2021-10-22 19:01 | NUR ---
TX GIVEN VIA MASK, TOLERATED WELL. PT ON ROOM AIR BEFORE AND AFTER TX.
--- NOTE | 2021-10-22 20:30 | NUR ---
Initial shift assessment done- very pleasant, alert/oriented x4, states was just talking to her sister on the phone and had a good conversation, in good spirits tonight, Tele on, states would like her Morphine for her right knee pain tonight- states she is having a U/S tomorrow of legs to look for clots, no other requests tonight- denies need for a snack
[2021-10-22 21:21] VITALS: BP 119/41; PULSE 70; TEMP 97.4
[2021-10-23 01:06] VITALS: BP 130/52; PULSE 76; TEMP 97.4
[2021-10-23 04:59] VITALS: BP 131/34; PULSE 82; TEMP 97.9
--- NOTE | 2021-10-23 06:07 | NUR ---
Medicated x2 during the night for right knee/foot pain- given the Morphine IV 1 mg each time-- states good relief with the morphine,,, did sleep well overall last night.
[2021-10-23 08:01] VITALS: BP 154/49; PULSE 90; TEMP 97.6
--- NOTE | 2021-10-23 09:00 | NUR ---
PATIENT STATED SHE FELT HER LEGS SWELLING. UPON ASSESMENT, NO SWELLING OF THE BLE NOTED. ALSO ASKED WHERE SHE AND THE DAUGHTER REPORTED REDNESS OF THE LLE. PATIENT POINTED TO LOWER CALF/ANKLE AREA. NO REDNESS NOTED.
--- NOTE | 2021-10-23 09:44 | NUR ---
PATIENTS DAUGHTER REQUESTED TO SPEAK TO THE [employer] PROGRAMMER TEAM. MODESTO CASEY AND WILL SPEAK TO PATIENT AND FAMILY WHEN POSSIBLE.
[2021-10-23 11:24] VITALS: BP 113/42; PULSE 65; TEMP 97.7
[2021-10-23] MEDS ORDERED: NICODERM C14 MG/PATC TD (12:06)
[2021-10-23] MEDS ORDERED: PREDNISONE20 MG PO (12:09)
[2021-10-23] MEDS ORDERED: PREDNISONE10 MG PO (12:10)
[2021-10-23] MEDS ORDERED: ULTRAM 50MG TAB50 MG PO (12:13)
[2021-10-23] MEDS ORDERED: COMBIRESP IH (13:26)
--- NOTE | 2021-10-23 14:00 | NUR ---
PATIENTS IV DISCONTINUED. DISCHARGE EDUCATION AND INSTRUCTIONS GIVEN. PATIENT TAKEN VIA WHEELCHAIR TO DAUGHTER PAULO. PATIENT LEFTIN STABLE CONDITION WITH ALL DISCHARGE INFO/EDUCATION AND BELONGINGS
== END 2021-10-23 14:00 | disposition home health service (06) ==
LOC: COL.ER 10:36 → MEDICAL 12:50
PROVIDERS: Emergency Medicine; ADMIT Internal Medicine
DX: J96.01 Acute respiratory failure with hypoxia (principal); J96.02 Acute respiratory failure with hypercapnia; J44.1 Chronic obstructive pulmonary disease with (acute) exacerbation; I10 Essential (primary) hypertension; E78.5 Hyperlipidemia, unspecified; M79.89 Other specified soft tissue disorders; I08.3 Combined rheumatic disorders of mitral, aortic and tricuspid valves; F17.210 Nicotine dependence, cigarettes, uncomplicated; R07.9 Chest pain, unspecified; M79.662 Pain in left lower leg; N17.9 Acute kidney failure, unspecified; M79.661 Pain in right lower leg; Z28.310 Unvaccinated for COVID-19; Z28.9 Immunization not carried out for unspecified reason; Z79.899 Other long term (current) drug therapy; Z95.0 Presence of cardiac pacemaker; Z79.01 Long term (current) use of anticoagulants; Z86.79 Personal history of other diseases of the circulatory system; Z86.711 Personal history of pulmonary embolism; Z86.718 Personal history of other venous thrombosis and embolism; Z20.822 Contact with and (suspected) exposure to COVID-19
CPT/HCPCS: 99222-AI; 99232-AI; G0378; J0456; J1940; J2270; J2930; J7050; J7512

== ENCOUNTER 2021-11-05 07:38 | Emergency (ER) | payer MEDICARE, MEDICAID ==
[~2021-11-05] VITALS: Ht 162.6 cm; Wt 85.0 kg
[2021-11-05 07:38] VITALS: TEMP 98.8
[~2021-11-05 07:38] MED LIST changes: +COMBIRESP IH; +NEURONTIN100 MG/CAP PO; +NICODERM C14 MG/PATC TD; +PREDNISONE10 MG PO
[2021-11-05] MEDS ORDERED: ROXICODONE 55 MG/TAB PO (08:23)
[2021-11-05] MEDS ORDERED: DULCOLAX STOOL100 MG PO (08:24)
[2021-11-05 08:40] VITALS: BP 142/49; PULSE 76
== END 2021-11-05 08:40 | disposition home or self-care (01) ==
LOC: COL.ER 07:38
DX: I73.9 Peripheral vascular disease, unspecified (principal); Z88.5 Allergy status to narcotic agent; Z88.6 Allergy status to analgesic agent

== ENCOUNTER 2021-11-21 15:12 | Emergency (ER) | payer MEDICARE, MEDICAID ==
[~2021-11-21] VITALS: Ht 162.6 cm; Wt 81.8 kg
[~2021-11-21 15:12] MED LIST changes: +DULCOLAX STOOL100 MG PO
[2021-11-21 15:17] VITALS: BP 145/60; PULSE 85; TEMP 97.8
== END 2021-11-21 17:32 | disposition home or self-care (01) ==
LOC: COL.ER 15:12
DX: G89.29 Other chronic pain (principal); I73.9 Peripheral vascular disease, unspecified; F17.200 Nicotine dependence, unspecified, uncomplicated; Z88.6 Allergy status to analgesic agent

== ENCOUNTER 2022-05-19 09:05 | Emergency (ER) | payer MEDICARE, MEDICAID ==
[~2022-05-19] VITALS: Ht 165.1 cm; Wt 83.2 kg
[2022-05-19 09:14] VITALS: BP 116/69; TEMP 97.5
[2022-05-19] MEDS ORDERED: AMOXICILLIN 8751 TAB PO (09:34)
[2022-05-19 09:55] VITALS: PULSE 70
== END 2022-05-19 09:55 | disposition home or self-care (01) ==
LOC: COL.ER 09:05
DX: S51.812A Laceration without foreign body of left forearm, initial encounter (principal); Z79.01 Long term (current) use of anticoagulants; W55.03XA Scratched by cat, initial encounter

== ENCOUNTER 2022-06-10 03:15 | Emergency (ER) | payer MEDICARE, MEDICAID ==
[~2022-06-10] VITALS: Ht 157.5 cm; Wt 82.3 kg
[2022-06-10 04:17] LABS: BASO # 0.1 K/mm3 (0.0-0.2); BASO % 0.6 % (0.0-2.0); EOS # 0.3 K/mm3 (0.0-0.7); EOS % 3.4 % (0.0-4.0); GRAN # 6.2 K/mm3 (1.4-6.5); HEMATOCRIT 38.4 % (37.0-47.0); HEMOGLOBIN 12.4 g/dl (12.5-16.0); LYMPH # 1.5 K/mm3 (1.2-3.4); LYMPH % 17.7 % (20.0-51.0); MEAN CELL VOLUME 98 fl (80.0-100.0); MEAN CORPUSCULAR HEMOGLOBIN 32 pg (27-31); MEAN CORPUSCULAR HGB CONC 32 g/dl (33.0-37.0); MONO # 0.5 K/mm3 (0.1-0.6); MONO % 6.2 % (1.7-9.3); PLATELET COUNT 132 K/mm3 (130-400); RED BLOOD COUNT 3.93 M/mm3 (4.10-5.30); REDCELL DISTRIBUTION WIDTH-CV 13.4 % (11.5-14.5)
[2022-06-10 05:27] LABS: ALBUMIN 3.1 gm/dL (3.4-4.8); BILIRUBIN,TOTAL 0.6 mg/dL (0.2-1.2); CALCIUM 8.9 mg/dL (8.4-10.2); CREATININE, serum 1.78 mg/dL (0.57-1.11); TOTAL PROTEIN 6.3 gm/dL (6.2-8.1)
[2022-06-10] MEDS ORDERED: NORCO 325 MG-51 TAB PO ×2 (05:57→05:59)
[2022-06-10 06:20] VITALS: BP 118/92; PULSE 74; TEMP 98
== END 2022-06-10 06:32 | disposition home or self-care (01) ==
LOC: COL.ER 03:15
PROVIDERS: Emergency Medicine
DX: M79.604 Pain in right leg (principal); M79.605 Pain in left leg; R79.89 Other specified abnormal findings of blood chemistry; G89.29 Other chronic pain; M54.50 Low back pain, unspecified; I73.9 Peripheral vascular disease, unspecified; F17.210 Nicotine dependence, cigarettes, uncomplicated; Z79.01 Long term (current) use of anticoagulants; Z79.1 Long term (current) use of non-steroidal anti-inflammatories (NSAID); Z88.5 Allergy status to narcotic agent
CPT/HCPCS: J2270; J7030

== ENCOUNTER 2022-06-21 22:00 | Emergency (ER) | payer MEDICARE, MEDICAID ==
[~2022-06-21] VITALS: Ht 160 cm; Wt 84.5 kg
[2022-06-21 22:04] VITALS: TEMP 97.4
[2022-06-21 23:07] LABS: BASO # 0.1 K/mm3 (0.0-0.2); BASO % 0.5 % (0.0-2.0); EOS # 0.2 K/mm3 (0.0-0.7); EOS % 1.3 % (0.0-4.0); GRAN # 10.6 K/mm3 (1.4-6.5); GRAN % 82.5 % (42.2-75.2); HEMATOCRIT 40.8 % (37.0-47.0); HEMOGLOBIN 13.1 g/dl (12.5-16.0); LYMPH # 1.6 K/mm3 (1.2-3.4); LYMPH % 12.3 % (20.0-51.0); MEAN CELL VOLUME 99 fl (80.0-100.0); MEAN CORPUSCULAR HEMOGLOBIN 32 pg (27-31); MEAN CORPUSCULAR HGB CONC 32 g/dl (33.0-37.0); MEAN PLATELET VOLUME 10.1 fl (7.4-10.4); MONO # 0.4 K/mm3 (0.1-0.6); PLATELET COUNT 220 K/mm3 (130-400); RED BLOOD COUNT 4.14 M/mm3 (4.10-5.30); REDCELL DISTRIBUTION WIDTH-CV 13.4 % (11.5-14.5)
[2022-06-21 23:31] LABS: ALBUMIN 3.1 gm/dL (3.4-4.8); BILIRUBIN,TOTAL 0.2 mg/dL (0.2-1.2); CALCIUM 8.8 mg/dL (8.4-10.2); CREATININE, serum 1.4 mg/dL (0.57-1.11); POTASSIUM 4.7 mmol/L (3.5-4.5); TOTAL PROTEIN 6.4 gm/dL (6.2-8.1)
[2022-06-22 00:05] LABS: CLOSTRIDIUM DIFF A/B NEG
[2022-06-22 02:18] VITALS: BP 114/67; PULSE 84
== END 2022-06-22 02:22 | disposition home or self-care (01) ==
LOC: COL.ER 22:00
PROVIDERS: Personal Emergency Response Attendant
DX: K52.9 Noninfective gastroenteritis and colitis, unspecified (principal); I73.9 Peripheral vascular disease, unspecified; K40.90 Unilateral inguinal hernia, without obstruction or gangrene, not specified as recurrent; D72.829 Elevated white blood cell count, unspecified; F17.200 Nicotine dependence, unspecified, uncomplicated; Z79.891 Long term (current) use of opiate analgesic; Z79.01 Long term (current) use of anticoagulants
CPT/HCPCS: J2270; J2405; J7030; Q9967

== ENCOUNTER 2022-07-13 10:30 | Outpatient (RCR) | payer MEDICARE, MEDICAID | END 2022-07-15 | disposition home or self-care (01) | LOC: WSPT | DX: I73.9 Peripheral vascular disease, unspecified (principal) ==

== ENCOUNTER 2022-12-07 09:00 | Outpatient (RCR) | payer MEDICARE, MEDICAID ==
[~2022-12-07 09:00] MED LIST changes: +CLARITIN 1010 MG/TAB PO; +JARDIANCE10 PO
== END 2022-12-15 | disposition home or self-care (01) ==
LOC: WSPT
DX: I73.9 Peripheral vascular disease, unspecified (principal); M79.604 Pain in right leg; M79.605 Pain in left leg

== ENCOUNTER 2023-02-24 12:32 | Emergency (ER) | payer MEDICARE, MEDICAID ==
[~2023-02-24] VITALS: Ht 170.2 cm; Wt 95.5 kg
[~2023-02-24 12:32] MED LIST changes: +BREZTRI AEROS10.7 GM IH
[2023-02-24 12:47] LABS: BASO # 0.1 K/mm3 (0.0-0.2); BASO % 0.7 % (0.0-2.0); EOS # 0.1 K/mm3 (0.0-0.7); EOS % 1.3 % (0.0-4.0); GRAN # 5.6 K/mm3 (1.4-6.5); GRAN % 79.2 % (42.2-75.2); HEMATOCRIT 43.8 % (37.0-47.0); HEMOGLOBIN 13.8 g/dl (12.5-16.0); LYMPH # 1.2 K/mm3 (1.2-3.4); LYMPH % 16.9 % (20.0-51.0); MEAN CELL VOLUME 95 fl (80.0-100.0); MEAN CORPUSCULAR HEMOGLOBIN 30 pg (27-31); MEAN CORPUSCULAR HGB CONC 32 g/dl (33.0-37.0); MEAN PLATELET VOLUME 10.7 fl (7.4-10.4); MONO # 0.1 K/mm3 (0.1-0.6); MONO % 1.6 % (1.7-9.3); PLATELET COUNT 175 K/mm3 (130-400); RED BLOOD COUNT 4.59 M/mm3 (4.10-5.30); REDCELL DISTRIBUTION WIDTH-CV 15.3 % (11.5-14.5)
[2023-02-24 12:55] LABS: URINE APPEARANCE Hazy (CLEAR/HAZY); URINE COLOR Yellow (YELLOW)
[2023-02-24 12:56] LABS: URINE BLOOD Negative (NEGATIVE); URINE GLUCOSE 2+ (NEGATIVE); URINE KETONE Negative (NEGATIVE); URINE NITRATE Negative (NEGATIVE); URINE PROTEIN(semi-quant) Negative (NEGATIVE); URINE UROBILINOGEN 0.2 E.U/dL (0.2-1.0)
[2023-02-24 12:59] VITALS: TEMP 98.1
[2023-02-24 12:59] LABS: COLLECTION METHOD CLEAN CATCH; URINE RBC 0-2 /hpf (0-2)
[2023-02-24 13:00] LABS: AMORPHOUS CRYSTAL Present (NOT PRESENT)
[2023-02-24 13:09] LABS: ALBUMIN 3.5 gm/dL (3.4-4.8); BILIRUBIN,TOTAL 0.4 mg/dL (0.2-1.2); CALCIUM 9.3 mg/dL (8.4-10.2); CREATININE, serum 1.38 mg/dL (0.57-1.11); POTASSIUM 4.5 mmol/L (3.5-4.5)
[2023-02-24] MEDS ORDERED: AMOXICILLIN 8751 TAB PO ×3 (14:53→15:09)
[2023-02-24] MEDS ORDERED: ZOFRAN ODT4 MG PO ×3 (14:53→15:09)
[2023-02-24] MEDS ORDERED: NORCO 325 MG-51 TAB PO ×3 (14:53→15:09)
[2023-02-24] MEDS ORDERED: VANCOCIN H125 MG/CAP PO ×3 (14:56→15:09)
[2023-02-24 15:20] VITALS: BP 152/55; PULSE 93
[2023-02-25] MEDS ORDERED: PERCOCET 325 MG1 TA2 PO ×2 (14:43→15:15)
== END 2023-02-24 15:27 | disposition home or self-care (01) ==
LOC: COL.ER 12:32
PROVIDERS: Emergency Medicine
DX: K52.9 Noninfective gastroenteritis and colitis, unspecified (principal); R79.89 Other specified abnormal findings of blood chemistry
CPT/HCPCS: J2405; J2765; J7040; Q9967

== ENCOUNTER 2023-03-23 19:05 | Emergency (ER) | payer MEDICARE, MEDICAID ==
[~2023-03-23] VITALS: Ht 157.5 cm; Wt 79.1 kg
[~2023-03-23 19:05] MED LIST changes: +VANCOCIN H125 MG/CAP PO; +ZOFRAN ODT4 MG PO
[2023-03-23 19:06] VITALS: TEMP 98.2
[2023-03-23 19:25] LABS: BASO # 0.1 K/mm3 (0.0-0.2); BASO % 0.9 % (0.0-2.0); EOS # 0.2 K/mm3 (0.0-0.7); EOS % 2.5 % (0.0-4.0); GRAN # 3.8 K/mm3 (1.4-6.5); GRAN % 55.8 % (42.2-75.2); HEMATOCRIT 38.7 % (37.0-47.0); HEMOGLOBIN 12.7 g/dl (12.5-16.0); LYMPH # 2.1 K/mm3 (1.2-3.4); LYMPH % 31.5 % (20.0-51.0); MEAN CELL VOLUME 93 fl (80.0-100.0); MEAN CORPUSCULAR HEMOGLOBIN 31 pg (27-31); MEAN CORPUSCULAR HGB CONC 33 g/dl (33.0-37.0); MEAN PLATELET VOLUME 11.2 fl (7.4-10.4); MONO # 0.6 K/mm3 (0.1-0.6); PLATELET COUNT 174 K/mm3 (130-400); RED BLOOD COUNT 4.16 M/mm3 (4.10-5.30); REDCELL DISTRIBUTION WIDTH-CV 14.9 % (11.5-14.5)
[2023-03-23 21:05] LABS: ALBUMIN 3.2 gm/dL (3.4-4.8); BILIRUBIN,TOTAL 0.2 mg/dL (0.2-1.2); CALCIUM 9.3 mg/dL (8.4-10.2); CREATININE, serum 2.12 mg/dL (0.57-1.11); POTASSIUM 3.8 mmol/L (3.5-4.5); TOTAL PROTEIN 6.9 gm/dL (6.2-8.1)
[2023-03-23] MEDS ORDERED: LEVAQUIN 5500 MG/TA1 PO (21:21)
[2023-03-23 21:40] VITALS: BP 142/53; PULSE 77
== END 2023-03-23 21:40 | disposition home or self-care (01) ==
LOC: COL.ER 19:05
PROVIDERS: Personal Emergency Response Attendant
DX: J40 Bronchitis, not specified as acute or chronic (principal); K62.5 Hemorrhage of anus and rectum; R79.89 Other specified abnormal findings of blood chemistry; Z79.01 Long term (current) use of anticoagulants

== ENCOUNTER 2023-04-08 09:20 | Inpatient (IN) | payer MEDICARE, MEDICAID ==
[~2023-04-08] VITALS: Ht 157.5 cm; Wt 73.6 kg
[~2023-04-08 09:20] MED LIST changes: +LEVAQUIN 5500 MG/TA1 PO
[2023-04-08 10:00] LABS: BASO % 0.3 % (0.0-2.0); EOS % 0.2 % (0.0-4.0); GRAN # 10.9 K/mm3 (1.4-6.5); GRAN % 86.5 % (42.2-75.2); HEMOGLOBIN 12.6 g/dl (12.5-16.0); LYMPH # 0.7 K/mm3 (1.2-3.4); LYMPH % 5.9 % (20.0-51.0); MEAN CELL VOLUME 89 fl (80.0-100.0); MEAN CORPUSCULAR HEMOGLOBIN 31 pg (27-31); MEAN CORPUSCULAR HGB CONC 34 g/dl (33.0-37.0); MEAN PLATELET VOLUME 11.1 fl (7.4-10.4); MONO # 0.8 K/mm3 (0.1-0.6); MONO % 6.6 % (1.7-9.3); PLATELET COUNT 149 K/mm3 (130-400); RED BLOOD COUNT 4.13 M/mm3 (4.10-5.30); REDCELL DISTRIBUTION WIDTH-CV 14.6 % (11.5-14.5)
[2023-04-08 10:04] LABS: HEMATOCRIT 36.9 % (37.0-47.0)
[2023-04-08 10:22] LABS: ALBUMIN 2.8 gm/dL (3.4-4.8); BILIRUBIN,TOTAL 0.8 mg/dL (0.2-1.2); CALCIUM 8.6 mg/dL (8.4-10.2); CREATININE, serum 2.22 mg/dL (0.57-1.11)
[2023-04-08 10:39] LABS: POTASSIUM 2.3 mmol/L (3.5-4.5)
[2023-04-08] MEDS ORDERED: LASIX 40MG TABL40 MG PO (12:44)
[2023-04-08] MEDS ORDERED: MIRALAX119G PO (12:47)
[2023-04-08] MEDS ORDERED: JARDIANCE25 PO (12:47)
[2023-04-08] MEDS ORDERED: ZOCOR 40MG40 MG PO (12:48)
[2023-04-08] MEDS ORDERED: PROAIR HFA0.09 MG/AC IH (12:48)
[2023-04-08] MEDS ORDERED: PEPCID 20MG TAB20 MG PO (12:50)
[2023-04-08 13:35] VITALS: BP 112/56; PULSE 70; TEMP 98.3
[2023-04-08 15:04] VITALS: BP 111/64; PULSE 73; TEMP 97.7
--- NOTE | 2023-04-08 16:34 | NUR ---
PATIENT ADMITTED TO UNIT AT THIS TIME. ADMISSION INTAKE AND ASSESSMENT COMPLETED. MED REC UPDATED. PATIENT PLACED ON FALL PRECAUTIONS, BED ALARMS IN PLACE, CALL LIGHT WITHIN REACH. PATIENT IS A&0 X4 AT THIS TIME BUT IS VERY DROWSY. IVF INFUSING. CONTINUING TO MONITOR.
[2023-04-08 17:14] VITALS: BP_SYST 111
[2023-04-08 19:28] VITALS: BP 110/31; PULSE 74; TEMP 98.9
[2023-04-08 20:00] VITALS: BP 110/30; PULSE 74; TEMP 98.9
--- NOTE | 2023-04-08 20:00 | NUR ---
ALERTED BY ABNER GARRETT. LAB CALLED- POTASSIUM WAS 2.9. REORDER FOR POTASSIUM PLACEMENT AND REPEAT 3HR LAB ORDER PLACED.
--- NOTE | 2023-04-08 20:00 | NUR ---
UPON SHIFT ASSESSMENT, MIGUEL WAS IN BED ASLEEP. VS ARE WNL, TELE IS NS. CALL LIGHT WITHIN REACH.
--- NOTE | 2023-04-08 20:25 | NUR ---
CALL PLACE TO HOSPITALIST, PATIENT C/O 12/25 BACK AND ABDOMINAL PAIN AND NICOTINE CRAVING/WITHDRAWL. BOWEL SOUNDS AUIDABLE AND ABDOMEN SOFT. TORB FOR 5MG NORCO AND NICOTINE PATCH GIVEN.
[2023-04-08 23:22] VITALS: BP 95/28; PULSE 73; TEMP 98.1
[2023-04-09] VITALS (11 sets, daily range): BP systolic 102–140; BP diastolic 38–50; PULSE 66–86; TEMP 97.7–98.2
--- NOTE | 2023-04-09 00:50 | NUR ---
ALERTED BY PCT PATIENT'S BP 98/39. ENTERED PATIENT'S ROOM OXYMASK PULLED DOWN TO CHIN. RECHECKED BP MANUAL LT ARM- 110/40 MAP 63 O2 ON 3L 94% PULSE 74 WILL CONTINUE BP VIGILANCE
--- NOTE | 2023-04-09 06:33 | NUR ---
THROUGHOUT THE NIGHT, MIGUEL HAS USED CALL LIGHT SEVERAL TIMES TO INQUIRE ABOUT CALLING RELATIVES (AT 0200). NEUROS GOOD. SHE IS CURRENTLY AXO X2/3 AND NEEDS TO BE REORIENTED TO TIME. VS WNL WITH THE EXCEPTION ON LOW BPs-SEE NOTES. PATIENT'S BP NEEDS TO BE TAKEN MANUALLY MIGUEL'S BP HAS BEEN SOFT IN UPPER 90'S AND DIASTOLE IN 40-50'S. LAST BP 0400 WAS 110/50.
[2023-04-09 07:16] LABS: BASO % 0.3 % (0.0-2.0); EOS # 0.1 K/mm3 (0.0-0.7); EOS % 0.9 % (0.0-4.0); GRAN # 5.5 K/mm3 (1.4-6.5); GRAN % 74.5 % (42.2-75.2); HEMOGLOBIN 10.7 g/dl (12.5-16.0); LYMPH % 13.6 % (20.0-51.0); MEAN CELL VOLUME 92 fl (80.0-100.0); MEAN CORPUSCULAR HEMOGLOBIN 31 pg (27-31); MEAN CORPUSCULAR HGB CONC 34 g/dl (33.0-37.0); MEAN PLATELET VOLUME 10.6 fl (7.4-10.4); MONO # 0.8 K/mm3 (0.1-0.6); MONO % 10.6 % (1.7-9.3); PLATELET COUNT 112 K/mm3 (130-400); RED BLOOD COUNT 3.44 M/mm3 (4.10-5.30); REDCELL DISTRIBUTION WIDTH-CV 14.6 % (11.5-14.5)
[2023-04-09 07:18] LABS: HEMATOCRIT 31.6 % (37.0-47.0)
[2023-04-09 07:24] LABS: CALCIUM 8.4 mg/dL (8.4-10.2); CREATININE, serum 1.57 mg/dL (0.57-1.11); MAGNESIUM 2.1 mg/dL (1.6-2.6); PHOSPHOROUS 2.9 mg/dL (2.3-4.7)
[2023-04-09 07:29] LABS: POTASSIUM 2.9 mmol/L (3.5-4.5)
--- NOTE | 2023-04-09 15:21 | NUR ---
THIS NURSE NOTIFIED THIS MORNING OF CRITICAL LAB RESULT POTASSIUM 2.9, THIS NURSE NOTIFIED HOSPITALIST. POTASSIUM REPLACED PER PROTOCOL. RECHECKIG LAB AT 1600.
--- NOTE | 2023-04-09 16:01 | NUR ---
hot iron worker call patient's daughter, Giovanna [phone] to complete discharge planning as pt is in isolation. She reports they live together in [place]. Dtr appeared to be in a lot of pain and needed a chair to sit. She says pt sees Dr. Mena and obtains medications from [facility] with no difficulties. She reports she is DPOA-HC and will bring in a copy. Dtr states pt is independent with ADLS and uses a DWW and oxygen from [facility]. SW reports PT/OT reccomend rehab. Daughter begins to decline this for her mother stating she would not want it. SW went into further detail and provided the Medicare.gov list to review. Pt's daughter was groaning in pain during the conversation. SW provided she would not be able to care for pt in her current condition. Dtr was agreeable and feels she might say 'no' as she is a smoke and allergic to nicotine patches. SW provided information for Giovanna to follow up tomorrow. RADHA also explained Home Health, but stated this is not as frequent and has a shorter duration. Discharge Plan: tbd
--- NOTE | 2023-04-09 20:00 | NUR ---
DURING BEDSIDE SHIFT REPORT, PATIENT C/O NAUSEA. MIGUEL IS AX0 X3 WITH RE ORIENTTIO TO TIME NEEDED OCCASIONALLY. SHE STILL C/O OF 9/10 CHRONIC BACK PAIN. VS ARE WNL AND TELE IS NS. SHE DENIES SOA. CALL LIGHT WITHIN REACH. ZOFRAN ADMINISTERED FOR NAUSEA, PATIENT STATES IT HAS SUBSIDED AND WISHES TO BE PLACED BACK ON OXY MASK FROM [place].
--- NOTE | 2023-04-09 22:38 | NUR ---
MAINTAINING BP VIGILANCE-RECHECK 108/40-MAP 63
[2023-04-10] VITALS (15 sets, daily range): BP systolic 98–134; BP diastolic 26–70; PULSE 60–80; TEMP 97.7–98.6
[2023-04-10 04:04] LABS: COLLECTION METHOD CATHETER
[2023-04-10 04:15] LABS: PH 5.5 (5.0-8.5); URINE APPEARANCE Clear (CLEAR/HAZY); URINE BACTERIA Occasional /hpf (NONE SEEN); URINE BLOOD Negative (NEGATIVE); URINE COLOR Yellow (YELLOW); URINE GLUCOSE 2+ (NEGATIVE); URINE KETONE Negative (NEGATIVE); URINE NITRATE Negative (NEGATIVE); URINE PROTEIN(semi-quant) Negative (NEGATIVE); URINE RBC 0-2 /hpf (0-2); URINE UROBILINOGEN 0.2 E.U/dL (0.2-1.0)
--- NOTE | 2023-04-10 05:55 | NUR ---
At approximately 05:55 this nurse was alerted to patient "mummbling". Entered patient's room just as she slipped into an absence seizure lasting approximately 3 minutes. No vommiting or sedation noted afterwards. Eyes showed sluggish reaction. Neuros were wnl with the exception of generalized weakness. Call placed to hospitalist and Torb for Keppra level and Prolactin given. Vital signs throughout and after were wnl. Call placed to patient's daughter whom stated patient goes into seizures when provoked by anxiety and confusion. Signs to visit nurse's station posted. Dayshift instructed on "gentle approach" as to minimize confusion.
[2023-04-10 06:31] LABS: BASO % 0.3 % (0.0-2.0); EOS # 0.1 K/mm3 (0.0-0.7); EOS % 1.8 % (0.0-4.0); GRAN # 5.2 K/mm3 (1.4-6.5); GRAN % 71.9 % (42.2-75.2); HEMOGLOBIN 10.8 g/dl (12.5-16.0); LYMPH # 1.2 K/mm3 (1.2-3.4); LYMPH % 16.6 % (20.0-51.0); MEAN CELL VOLUME 93 fl (80.0-100.0); MEAN CORPUSCULAR HEMOGLOBIN 30 pg (27-31); MEAN CORPUSCULAR HGB CONC 33 g/dl (33.0-37.0); MEAN PLATELET VOLUME 10.8 fl (7.4-10.4); MONO # 0.7 K/mm3 (0.1-0.6); MONO % 9.1 % (1.7-9.3); PLATELET COUNT 130 K/mm3 (130-400); RED BLOOD COUNT 3.56 M/mm3 (4.10-5.30); REDCELL DISTRIBUTION WIDTH-CV 14.9 % (11.5-14.5)
[2023-04-10 06:37] LABS: HEMATOCRIT 33.1 % (37.0-47.0)
[2023-04-10 07:23] LABS: CALCIUM 8.7 mg/dL (8.4-10.2); CREATININE, serum 1.27 mg/dL (0.57-1.11); POTASSIUM 3.6 mmol/L (3.5-4.5)
--- NOTE | 2023-04-10 14:21 | NUR ---
home support worker met with pt and daughter, Giovanna at bedside to further discuss discharge planning. RADHA discussed the reccomendation for SNF by therapies. RADHA advised she spoke with the facility [facility] and they allow smoking and this was a concern for pt. They were all agreeable she would want this facility, so she can smoke. RADHA said she would send a referral there. RADHA faxed a referral to [facility]. [facility] called and informed SW they have a tenative acceptance. [facility] inquired about a DPOA-HC, so family could be notified if needed. RADHA spoke with Giovanna who emailed SW copies of the DPOA-HC. RADHA placed in the chart. Discharge Plan: [facility] tenatively?
--- NOTE | 2023-04-10 20:30 | NUR ---
Initial shift assessment done- states back pain 09/24--will give the oxycodone as ordered, o2 sats 90% on RA- had the o2 off-so put back on the 1L/oxymask, Seizure precautions in place, tele on -Paced, IV fluids of NS at 50cc/hr. denies need for snacks tonight-- did take some Ensure for a "burning stomach"
[2023-04-11 00:38] VITALS: BP_SYST 115
[2023-04-11 03:24] VITALS: BP 135/41; PULSE 70; TEMP 98.7
[2023-04-11 04:45] VITALS: BP_SYST 135
--- NOTE | 2023-04-11 06:30 | NUR ---
This nurse took over patient care at approximately 0330. Continues on IV fluids per orders. Was on room air. Voices no questions, needs, or concerns at this time. In bed with call light within reach. High fall risk precautions in place. Bed alarm on.
[2023-04-11 07:27] VITALS: BP 122/64; PULSE 92; TEMP 97.8
[2023-04-11] MEDS ORDERED: TYLENOL 500MG500 MG PO (09:25)
[2023-04-11] MEDS ORDERED: ROXICODONE 55 MG/TAB PO (09:29)
[2023-04-11 10:13] VITALS: BP_SYST 122
--- NOTE | 2023-04-11 11:08 | NUR ---
electronics utility worker was informed during clinical rounding today that pt can discharge. RADHA faxed discharge orders to [facility]. [facility] reports they can accept and transport patient at 11:30AM. RADHA completed IM from Medicare. Patient signed and verbalized understanding. RADHA provided copy and placed original in chart. Pt reports she is in pain and groaning. RADHA informed RN Irish (brandon.) Discharge Plan: [facility] 11:30am
--- NOTE | 2023-04-11 11:37 | NUR ---
CALLED [facility] AND SPOKE WITH ABNER CUEVAS. GAVE REPORT ON PATIENT ARRIVING TO THEIR FACILITY. ACKNOWLEDGED UNDERSTANDING. NO ISSUES.
--- NOTE | 2023-04-11 11:56 | NUR ---
PATIENT DISCHARGED WITH CARE TRANSPORT TO [facility]. RECEIVED DISCHARGE PAPERWORK. NO ISSUES.
== END 2023-04-11 11:58 | DRG 683 ==
LOC: COL.ER 09:20 → MEDICAL 11:55
PROVIDERS: Personal Emergency Response Attendant; Physician Assistant; ADMIT Internal Medicine
DX: N17.9 Acute kidney failure, unspecified (principal); C34.90 Malignant neoplasm of unspecified part of unspecified bronchus or lung; J96.11 Chronic respiratory failure with hypoxia; E87.1 Hypo-osmolality and hyponatremia; E44.0 Moderate protein-calorie malnutrition; K80.20 Calculus of gallbladder without cholecystitis without obstruction; K40.90 Unilateral inguinal hernia, without obstruction or gangrene, not specified as recurrent; J44.9 Chronic obstructive pulmonary disease, unspecified; I10 Essential (primary) hypertension; I25.2 Old myocardial infarction; I45.10 Unspecified right bundle-branch block; N20.0 Calculus of kidney; E11.51 Type 2 diabetes mellitus with diabetic peripheral angiopathy without gangrene; G40.909 Epilepsy, unspecified, not intractable, without status epilepticus; E87.6 Hypokalemia; M81.0 Age-related osteoporosis without current pathological fracture; F39 Unspecified mood [affective] disorder; E78.5 Hyperlipidemia, unspecified; E86.0 Dehydration; E87.8 Other disorders of electrolyte and fluid balance, not elsewhere classified; R63.4 Abnormal weight loss; R53.81 Other malaise; Z68.29 Body mass index [BMI] 29.0-29.9, adult; F17.210 Nicotine dependence, cigarettes, uncomplicated; Z95.0 Presence of cardiac pacemaker; Z86.711 Personal history of pulmonary embolism; Z86.73 Personal history of transient ischemic attack (TIA), and cerebral infarction without residual deficits; Z88.5 Allergy status to narcotic agent
CPT/HCPCS: J2270; J2405; J3480; J7030

== ENCOUNTER 2023-05-09 14:26 | Emergency (ER) | payer MEDICARE ==
[~2023-05-09] VITALS: Ht 154.9 cm; Wt 65.9 kg
[~2023-05-09 14:26] MED LIST changes: +JARDIANCE25 PO; +LASIX 40MG TABL40 MG PO; +MIRALAX119G PO; +PEPCID 20MG TAB20 MG PO
[2023-05-09 14:29] VITALS: TEMP 98.4
[2023-05-09 15:32] LABS: COLLECTION METHOD CATHETER
[2023-05-09 15:35] LABS: HEMATOCRIT 38.4 % (37.0-47.0); HEMOGLOBIN 12.8 g/dl (12.5-16.0); MEAN CELL VOLUME 89 fl (80.0-100.0); MEAN CORPUSCULAR HEMOGLOBIN 30 pg (27-31); MEAN CORPUSCULAR HGB CONC 33 g/dl (33.0-37.0); MEAN PLATELET VOLUME 10.3 fl (7.4-10.4); PLATELET COUNT 216 K/mm3 (130-400); RED BLOOD COUNT 4.34 M/mm3 (4.10-5.30); REDCELL DISTRIBUTION WIDTH-CV 14.3 % (11.5-14.5)
[2023-05-09 15:37] LABS: PH 5.5 (5.0-8.5); URINE APPEARANCE CLEAR (CLEAR/HAZY); URINE BLOOD NEGATIVE (NEGATIVE); URINE COLOR YELLOW (YELLOW); URINE GLUCOSE 1+ (NEGATIVE); URINE KETONE NEGATIVE (NEGATIVE); URINE NITRATE NEGATIVE (NEGATIVE); URINE PROTEIN(semi-quant) NEGATIVE (NEGATIVE)
[2023-05-09 15:58] LABS: BILIRUBIN,TOTAL 0.7 mg/dL (0.2-1.2); CALCIUM 9.2 mg/dL (8.4-10.2); CREATININE, serum 1.61 mg/dL (0.57-1.11); TOTAL PROTEIN 6.1 gm/dL (6.2-8.1)
[2023-05-09 16:00] LABS: POTASSIUM 2.7 mmol/L (3.5-4.5)
[2023-05-09 16:08] LABS: EOSINOPHIL 1 % (0-4); LYMPHOCYTE 2 % (20.0-51.0); NEUTROPHILS 97 % (42.0-75.2); PLATELET ESTIMATE NORMAL (NORMAL)
[2023-05-09] MEDS ORDERED: Acetaminophen 325 MG TAB PO ONE (17:00)
[2023-05-09 18:31] VITALS: BP 120/52; PULSE 79
[2023-05-09] MEDS ORDERED: AMOXICILLIN 8751 TAB PO (18:45)
[2023-05-09] MEDS ORDERED: KLOR-CON20 MEQ PO (18:47)
[2023-05-09] MEDS ORDERED: K-DUR20 MEQ PO (18:48)
[2023-05-10] MEDS ORDERED: FOSAMAX 70MG TA70 MG PO (04:54)
[2023-05-10] MEDS ORDERED: NORCO 325 MG-101 TAB PO (05:07)
[2023-05-13] MEDS ORDERED: CIPRO 500MG TA500 MG PO (11:42)
[2023-05-13] MEDS ORDERED: FLAGYL500 MG PO (11:42)
== END 2023-05-09 19:30 | disposition home or self-care (01) ==
LOC: COL.ER 14:26
PROVIDERS: Physician Assistant
DX: K57.32 Diverticulitis of large intestine without perforation or abscess without bleeding (principal); E87.6 Hypokalemia; E87.1 Hypo-osmolality and hyponatremia; J44.9 Chronic obstructive pulmonary disease, unspecified; J96.11 Chronic respiratory failure with hypoxia; F17.210 Nicotine dependence, cigarettes, uncomplicated; Z99.81 Dependence on supplemental oxygen; Z88.6 Allergy status to analgesic agent

== ENCOUNTER 2023-05-10 03:22 | Observation (INO) | payer MEDICARE, MEDICAID ==
[2023-05-10] VITALS (9 sets, daily range): BP systolic 98–123; BP diastolic 60–66; PULSE 73–84; TEMP 97.4–98.3
[~2023-05-10] VITALS: Ht 154.9 cm; Wt 71.1 kg
[~2023-05-10 03:22] MED LIST changes: +K-DUR20 MEQ PO; +KLOR-CON20 MEQ PO
[2023-05-10] MEDS ORDERED: Morphine 4 MG/ML VIAL IV ONE (03:45)
[2023-05-10 03:53] LABS: BASO % 0.3 % (0.0-2.0); GRAN % 88.3 % (42.2-75.2); HEMATOCRIT 38.1 % (37.0-47.0); HEMOGLOBIN 12.6 g/dl (12.5-16.0); LYMPH # 0.8 K/mm3 (1.2-3.4); LYMPH % 6.3 % (20.0-51.0); MEAN CELL VOLUME 89 fl (80.0-100.0); MEAN CORPUSCULAR HEMOGLOBIN 30 pg (27-31); MEAN CORPUSCULAR HGB CONC 33 g/dl (33.0-37.0); MEAN PLATELET VOLUME 10.5 fl (7.4-10.4); MONO # 0.6 K/mm3 (0.1-0.6); MONO % 4.8 % (1.7-9.3); PLATELET COUNT 190 K/mm3 (130-400); RED BLOOD COUNT 4.26 M/mm3 (4.10-5.30); REDCELL DISTRIBUTION WIDTH-CV 14.6 % (11.5-14.5)
[2023-05-10 04:02] LABS: INR 1.7 (0.8-3.0); PROTHROMBIN TIME 18.1 SECONDS (9.7-12.8)
[2023-05-10 04:05] LABS: PARTIAL THROMBOPLASTIN TIME 29.9 SECONDS (26.0-37.0)
[2023-05-10 04:13] LABS: ALBUMIN 2.7 gm/dL (3.4-4.8); BILIRUBIN,TOTAL 0.6 mg/dL (0.2-1.2); C-REACTIVE PROTEIN 10.06 mg/dL (0.00-0.50); CALCIUM 8.7 mg/dL (8.4-10.2); CREATININE, serum 1.69 mg/dL (0.57-1.11); POTASSIUM 3.1 mmol/L (3.5-4.5); TOTAL PROTEIN 5.7 gm/dL (6.2-8.1)
[2023-05-10] MEDS ORDERED: Morphine 4 MG/ML VIAL IV PRN (04:45)
[2023-05-10] MEDS ORDERED: *Potassium Replacement Protocol MC SCH (04:45)
[2023-05-10] MEDS ORDERED: NS 1,000 ML IV SCH (04:45)
[2023-05-10] MEDS ORDERED: Ondansetron 4 MG/2 ML VIAL IV PRN (04:45)
[2023-05-10] MEDS ORDERED: Potassium Chloride 100 ML IV SCH (04:45)
[2023-05-10] MEDS ORDERED: FOSAMAX 70MG TA70 MG PO (04:54)
[2023-05-10] MEDS ORDERED: Albuterol 0.083% Neb Soln 2.5 MG/3 ML UD IH PRN (05:00)
[2023-05-10] MEDS ORDERED: metroNIDAZOLE 100 ML IV SCH (05:00)
[2023-05-10] MEDS ORDERED: Acetaminophen 500 MG TAB PO PRN (05:00)
[2023-05-10] MEDS ORDERED: cefTRIAXone 1 G in Water For Injection,Sterile 10 ML IV SCH (05:00)
[2023-05-10] MEDS ORDERED: Albuterol/Ipratropium 3 MG-0.5 MG/3 ML Neb Soln IH PRN (05:00)
[2023-05-10] MEDS ORDERED: NORCO 325 MG-101 TAB PO (05:07)
[2023-05-10] MEDS ORDERED: HYDROcodone/Acetaminophen 10-325 MG TAB PO PRN (05:15)
--- NOTE | 2023-05-10 05:30 | NUR ---
Patient arrived to the unit at this time. Denies any pain at rest but rates it at 10/10 when she coughs. Denies any needs at this time. Assessment complete. Med rec filled out with information patient could give at this time, daughter is supposed to bring in med in when she comes in this morning. IV in left AC flushes easily with no complications. Left lower leg is slightly swollen and hurts when squeezed but is not red or warm. Oriented patinet to room, call light, bed, and bathroom. Seizure pads in place. Call light and personal items in reach. Bed in low position and bed alarm on.
[2023-05-10] MEDS ORDERED: Budesonide Neb Susp 0.5 MG/2 ML AMP IH SCH (07:00)
[2023-05-10] MEDS ORDERED: Albuterol/Ipratropium 3 MG-0.5 MG/3 ML Neb Soln IH SCH (08:00)
[2023-05-10] MEDS ORDERED: Docusate Sodium 100 MG CAP PO SCH (09:00)
[2023-05-10] MEDS ORDERED: Famotidine 20 MG TAB PO SCH (09:00)
[2023-05-10] MEDS ORDERED: Loratadine 10 MG TAB PO SCH (09:00)
[2023-05-10] MEDS ORDERED: Citalopram 20 MG TAB PO SCH (09:00)
[2023-05-10] MEDS ORDERED: Polyethylene Glycol 3350 17 GM PDS PO SCH (09:00)
[2023-05-10] MEDS ORDERED: Umeclidinium/Vilanterol 62.5-25 MCG INHALATION/INHALER IH SCH (09:00)
[2023-05-10] MEDS ORDERED: levETIRAcetam 500 MG TAB PO SCH (09:00)
[2023-05-10] MEDS ORDERED: Budesonide/Glycopyrrolate/Formoterol **** subs to Budesonide + Umeclid/Vilant IH SCH (09:00)
[2023-05-10] MEDS ORDERED: Nicotine 21 MG DAILY PATCH TD SCH (09:00)
--- NOTE | 2023-05-10 09:30 | NUR ---
PT LAYING IN BED UPON ENTERING. ASSESSMENT DONE, KEPPRA GIVEN. NICOTINE PATCH TO LEFT SHOULDER. LEFT AC IV PATENT WITH FLUIDS RUNNING PER ORDER. PT NPO AT THIS TIME. PT ORIENTED WITH CONFUSED CONVERSATIONS WHILE THIS NURSE IN ROOM. PT INITIALLY COMPLAINING OF 10/10 PAIN AND NAUSEA DUE TO TRANSFERRING TO COMMODE. WHEN BACK TO BED AND NOTIFIED THAT THIS NURSE IS GOING TO GET SOMETHING FOR PAIN AND NAUSEA PT DENIES BEING IN PAIN OR NAUSEOUS AT ALL. PT REPORTS BEING TIRED DUE TO BEING IN ER AND NOT SLEEPING WELL. BED IN LOWEST POSITION, CALL LIGHT IN REACH, BED ALARM ON
[2023-05-10 10:21] LABS: COLLECTION METHOD CATHETER
[2023-05-10 10:27] LABS: URINE APPEARANCE CLEAR (CLEAR/HAZY); URINE BLOOD 2+ (NEGATIVE); URINE COLOR YELLOW (YELLOW); URINE GLUCOSE TRACE (NEGATIVE); URINE KETONE NEGATIVE (NEGATIVE); URINE NITRATE NEGATIVE (NEGATIVE); URINE PROTEIN(semi-quant) NEGATIVE (NEGATIVE); URINE UROBILINOGEN 0.2 E.U/dL (0.2-1.0)
[2023-05-10] MEDS ORDERED: Phenylephrine/Mineral Oil/Petrolatum 57 GM TUBE RC SCH (11:00)
--- NOTE | 2023-05-10 11:46 | NUR ---
THIS NURSE GAVE PT BAG 2/2 OF POTASSIUM. ORDER NOT PUT IN PROTOCOL SO THERE IS NO RECHECK ORDERED. HOSPITALIST NOTIFIED AND THIS NURSE ASKED IF HE WANTED A POTASSIUM RECHECK THIS AFTERNOON OR IN THE MORNING. THIS NURSE TOLD THAT MORNING RECHECK IS OKAY.
--- NOTE | 2023-05-10 13:19 | NUR ---
aids social worker and Marlene Zhu, met with patient to discuss discharge planning. Patient reports she lives in [place] with her daughter, Giovanna, P# [phone]. PCP is Dr. Mena, pharmacy is [facility]. No issues affording mediations. DPOA-HC is Giovanna. Patient has a walker at home and is on oxygen at night. Patient reports she does not know what agency services her oxygen. Patient reports she is independent with ADLS and Giovanna transports her to and from appointments. Patient would like to return home at time of discharge and is open to home health. Patient reports she currently has an agency that comes in and assists her with cleaning the house but could not remember the name of the agency. RADHA attended clinical rounding with the interdisciplinary team. Dr. Rich reports he would like to have a goals of care meeting with the patient and family. aids social worker contacted Giovanna, P# [phone], and left a voicemail to discuss having this meeting. RADHA received a return call from Giovanna. Giovanna confirmed patient lives with her and she is her DPOA-HC. RADHA discussed having a meeting for goals of care. Giovanna reports they had a meeting with the patient last time she was in the hospital around a month ago and she does not want to be placed in a nursing facility. Giovanna reports patient still wants to be a full code and all medical care. Giovanna expressed they would like PT/OT/nursing for home health. RADHA left a Medicare.gov list of options in the patient's room. Patient and Giovanna chose [facility]. Marlene Zhu, faxed [facility]erral. Discharge plan: Home with Home Health
--- NOTE | 2023-05-10 16:01 | NUR ---
print room worker notes PT/OT are recommending SNF. RADHA contacted Giovanna, patient's daughter, whom reports last time patient was placed in a SNF, she left AMA after around an hour. Patient wants to return home. RADHA was notified [facility] is unable to accept patient. RADHA notified Giovanna whom reports second choice is [facility]. RADHA secure emailed a referral to [facility]. Discharge plan: Home with Home Health
--- NOTE | 2023-05-10 19:32 | NUR ---
REPORT GIVEN TO ABNER DEMPSEY
--- NOTE | 2023-05-10 19:40 | NUR ---
Patient resting in bed. Rates her pain at 10/10 when moving or coughing, pain meds given. Assessment complete. IV in left AC infusing with no complicaitons. Denies any needs at this time. Call light and personal items in reach. Bed in low position and bed alarm on.
[2023-05-10] MEDS ORDERED: Atorvastatin 20 MG TAB PO SCH (21:00)
[2023-05-10] MEDS ORDERED: Simvastatin 40 MG **** subs to Atorvastatin 20 MG PO SCH (21:00)
[2023-05-11] VITALS (12 sets, daily range): BP systolic 92–122; BP diastolic 56–64; PULSE 63–83; TEMP 97.5–98.2
--- NOTE | 2023-05-11 06:00 | NUR ---
Patient up to bedside comode. States she feels like she is about to have a seizure, her jaw is moving up and down and she says this is what happens before she seizes. Hospitalist Glenda contacted and notified, recieved orders to go ahead and give her morning dose of Keppra now. Keppra and norco given for pain rating 10/10 in her lower abd. No other changes over night. Call light and personal items in reach. Bed in low position and bed alarm on.
[2023-05-11] MEDS ORDERED: LORazepam 2 MG/ML 1 ML VIAL IV PRN (06:15)
[2023-05-11] MEDS ORDERED: Potassium Bicarbonate/Citrate 20 MEQ Effervescent TAB PO ONE ×2 (08:00→22:30)
--- NOTE | 2023-05-11 11:44 | NUR ---
Data: Patient and Daughter accepted Real Estate Associate Attorney visit offered during Real Estate Associate Attorney rounds. Daughter had service dog with her. Patient spoke with Real Estate Associate Attorney about her miraculous encounter with Abdirashid. Real Estate Associate Attorney left when Doctor arrived to speak with Patient. Assessment: Patient enjoys the affections and comfort of the service dog. Patient enjoys speaking about her blanca and recounting her testimony. Plan of Care: Chaplains will remain available as needed/requested while Patient is admitted to this hospital.
[2023-05-11] MEDS ORDERED: NS 1,000 ML IV SCH (12:00)
[2023-05-11] MEDS ORDERED: HYDROcodone/Acetaminophen 10-325 MG TAB PO PRN (12:00)
--- NOTE | 2023-05-11 12:46 | NUR ---
Patient alert and oriented to self, situation, and location. Complains of increase in pain, PRN [place] administered. Wheezes noted to all lung morse. Continues to wear 3L O2 PRN which is patient's baseline. NS infusing per orders through left AC. Patient complains of nausea, PRN Zofran administered and effective. Daughter at bedside. Call light within reach, all needs met at this time.
--- NOTE | 2023-05-11 12:49 | NUR ---
bench worker helper was notified patient was interested in SNF. RADHA met with patient and discussed the options. Patient ultimately decided she would rather go home with her home health. [facility] accepted this patient for home health. RADHA left a voicemail with patient's daughter with the update. RADHA discussed with Dr. Rich whom agreed patient would benefit from home health as she left AMA from the last facility she went for after a day. Discharge plan: Home with [facility]
--- NOTE | 2023-05-11 17:43 | NUR ---
Patient remains stable. Tolerating x1 pivot transfer well to bedside commode. Medium loose BM noted, no blood present. Patient able to get self back in bed with SBA. Complains of increased pain, PRN Tylenol administered. Call light within reach, all needs met at this time.
--- NOTE | 2023-05-11 19:50 | NUR ---
PT ALERT AND ORIENTED. AT THE START OF SHIFT CALLED OUT FOR PAIN MEDS. OFF GOIGN RN MEDICATED. THEN CALLED OUT AGAIN AT 1914 FOR NIGHT MEDS. MEDICATED PER EMAR. PT STAES SHE WANTED TO MAKE SURE SHE WASNT GOING TO HAVE ANOTHER SEIZURE WANTED HER KEPPRA BEFORE IT WAS DUE. ASSESSED, ON 3 LITERS OXYMASK. IV TO LAC PATENT. DENIES FURTHER NEED, CALL LIGHT WITHIN REACH.
[2023-05-12 00:17] VITALS: BP 108/56; PULSE 74; TEMP 98.1
--- NOTE | 2023-05-12 01:00 | NUR ---
Report recieved from ABNER Brand.
[2023-05-12 01:38] VITALS: BP_SYST 108
[2023-05-12] MEDS ORDERED: Potassium Bicarbonate/Citrate 20 MEQ Effervescent TAB PO ONE (03:30)
[2023-05-12 04:17] VITALS: BP 109/64; PULSE 77; TEMP 97.8
[2023-05-12 04:56] VITALS: BP_SYST 109
--- NOTE | 2023-05-12 06:00 | NUR ---
Patient resting in bed. Denies any pain or needs at this time. No changes over night other than replaced potassium. Call light and personal items in reach. Bed in low position and bed alarm on.
[2023-05-12 07:37] VITALS: BP 115/46; PULSE 75; TEMP 97.8
[2023-05-12 07:58] LABS: BASO % 0.3 % (0.0-2.0); EOS # 0.2 K/mm3 (0.0-0.7); EOS % 3.4 % (0.0-4.0); GRAN # 4.4 K/mm3 (1.4-6.5); GRAN % 74.9 % (42.2-75.2); LYMPH # 0.8 K/mm3 (1.2-3.4); MEAN CORPUSCULAR HGB CONC 32 g/dl (33.0-37.0); MEAN PLATELET VOLUME 10.8 fl (7.4-10.4); MONO # 0.5 K/mm3 (0.1-0.6); MONO % 8.1 % (1.7-9.3); PLATELET COUNT 183 K/mm3 (130-400); RED BLOOD COUNT 3.42 M/mm3 (4.10-5.30); REDCELL DISTRIBUTION WIDTH-CV 14.9 % (11.5-14.5)
[2023-05-12 08:14] LABS: HEMATOCRIT 31.3 % (37.0-47.0); MEAN CELL VOLUME 92 fl (80.0-100.0); MEAN CORPUSCULAR HEMOGLOBIN 29 pg (27-31)
[2023-05-12 08:21] LABS: ALBUMIN 2.4 gm/dL (3.4-4.8); BILIRUBIN,TOTAL 0.3 mg/dL (0.2-1.2); CALCIUM 8.5 mg/dL (8.4-10.2); CREATININE, serum 1.26 mg/dL (0.57-1.11); POTASSIUM 3.4 mmol/L (3.5-4.5); TOTAL PROTEIN 5.2 gm/dL (6.2-8.1)
[2023-05-12] MEDS ORDERED: K-TAB20 PO (09:13)
[2023-05-12] MEDS ORDERED: NORCO 325 MG-101 TAB PO (09:14)
[2023-05-12 09:42] VITALS: BP_SYST 115
--- NOTE | 2023-05-12 09:49 | NUR ---
PT LAYING IN BE UPON ENTERING. ASSESSMENT DONE, MEDS GIVEN. PT PIVOT TRANSFERRED TO BEDSIDE COMMODE. PT HAD A SMALL LOOSE BOWEL MOVEMENT, MIRALAX HELD. NICOTINE PATCH REFUSED. LEFT AC IV PATENT WITH FLUIDS RUNNING PER ORDER. PT ON 3L OXYMASK AND DENIES PAIN AND AT THIS TIME. ALL LUNG WOODARD DIMINISHED. PT HAS A SCATTERED RASH TO BILATERAL CALVES AND REPORTS THAT THIS IS FROM [facility]. PHYSICAL THERAPY AT BEDSIDE UPON THIS NURSE LEAVING. BED IN LOWEST POSTION, CALL LIGHT IN REACH
--- NOTE | 2023-05-12 10:33 | NUR ---
SW informed that patient would be discharging on this day. RADHA printed discharge orders and faxed to [facility].
--- NOTE | 2023-05-12 10:38 | NUR ---
IV REMOVED AND DRESSED IN PERSONAL CLOTHES. PT GIVEN DISCHARGE INSTRUCTIONS AND VERBALIZED UNDERSTANDING. PT ESCORTED TO PERSONAL VEHICLE VIA WHEELCHAIR BY THIS NURSE. DAUGHTER GIVEN DISCHARGE INSTRUCTIONS WELL AT THE CAR.
[2023-05-13] MEDS ORDERED: CIPRO 500MG TA500 MG PO (11:42)
[2023-05-13] MEDS ORDERED: FLAGYL500 MG PO (11:42)
== END 2023-05-12 10:39 | disposition home or self-care (01) ==
LOC: COL.ER 03:22 → MEDICAL 04:38
PROVIDERS: Emergency Medicine; Internal Medicine; ADMIT Hospitalist
DX: K57.92 Diverticulitis of intestine, part unspecified, without perforation or abscess without bleeding (principal); A41.9 Sepsis, unspecified organism; R10.9 Unspecified abdominal pain; K62.5 Hemorrhage of anus and rectum; K40.90 Unilateral inguinal hernia, without obstruction or gangrene, not specified as recurrent; K80.20 Calculus of gallbladder without cholecystitis without obstruction; E87.6 Hypokalemia; N17.9 Acute kidney failure, unspecified; N18.30 Chronic kidney disease, stage 3 unspecified; I12.9 Hypertensive chronic kidney disease with stage 1 through stage 4 chronic kidney disease, or unspecified chronic kidney disease; E78.5 Hyperlipidemia, unspecified; I25.10 Atherosclerotic heart disease of native coronary artery without angina pectoris; I25.2 Old myocardial infarction; I73.9 Peripheral vascular disease, unspecified; R09.02 Hypoxemia; J44.9 Chronic obstructive pulmonary disease, unspecified; C34.90 Malignant neoplasm of unspecified part of unspecified bronchus or lung; I67.1 Cerebral aneurysm, nonruptured; G40.909 Epilepsy, unspecified, not intractable, without status epilepticus; F39 Unspecified mood [affective] disorder; F17.200 Nicotine dependence, unspecified, uncomplicated; Z86.711 Personal history of pulmonary embolism; Z86.73 Personal history of transient ischemic attack (TIA), and cerebral infarction without residual deficits; Z95.0 Presence of cardiac pacemaker; Z79.899 Other long term (current) drug therapy; Z79.01 Long term (current) use of anticoagulants
CPT/HCPCS: G0378; J0696; J1836; J2270; J2405; J3480; J7030

== ENCOUNTER 2023-05-31 22:30 | Emergency (ER) | payer MEDICARE, MEDICAID ==
[~2023-05-31] VITALS: Ht 167.6 cm; Wt 70.9 kg
[~2023-05-31 22:30] MED LIST changes: +CIPRO 500MG TA500 MG PO; +FLAGYL500 MG PO; +FOSAMAX 70MG TA70 MG PO; +NORCO 325 MG-101 TAB PO
[2023-05-31 22:33] VITALS: TEMP 98.1
[2023-05-31] MEDS ORDERED: oxyCODONE 5 MG TAB PO ONE (23:00)
[2023-05-31 23:40] LABS: ALBUMIN 2.9 gm/dL (3.4-4.8); BILIRUBIN,TOTAL 0.3 mg/dL (0.2-1.2); CREATININE, serum 1.59 mg/dL (0.57-1.11); POTASSIUM 3.1 mmol/L (3.5-4.5); TOTAL PROTEIN 6.4 gm/dL (6.2-8.1)
[2023-05-31 23:46] LABS: TROPONIN-I 0.02 ng/mL (0.00-0.033)
[2023-06-01 01:17] LABS: BASO # 0.1 K/mm3 (0.0-0.2); BASO % 1.1 % (0.0-2.0); EOS # 0.2 K/mm3 (0.0-0.7); EOS % 2.9 % (0.0-4.0); GRAN # 2.6 K/mm3 (1.4-6.5); GRAN % 46.9 % (42.2-75.2); HEMOGLOBIN 11.3 g/dl (12.5-16.0); LYMPH # 2.1 K/mm3 (1.2-3.4); LYMPH % 38.2 % (20.0-51.0); MEAN CELL VOLUME 90 fl (80.0-100.0); MEAN CORPUSCULAR HEMOGLOBIN 29 pg (27-31); MEAN CORPUSCULAR HGB CONC 32 g/dl (33.0-37.0); MEAN PLATELET VOLUME 10.7 fl (7.4-10.4); MONO # 0.6 K/mm3 (0.1-0.6); MONO % 10.7 % (1.7-9.3); PLATELET COUNT 244 K/mm3 (130-400); RED BLOOD COUNT 3.87 M/mm3 (4.10-5.30); REDCELL DISTRIBUTION WIDTH-CV 15.5 % (11.5-14.5)
[2023-06-01 01:18] LABS: HEMATOCRIT 34.9 % (37.0-47.0)
[2023-06-01 01:36] LABS: COLLECTION METHOD CATHETER
[2023-06-01 02:03] LABS: URINE APPEARANCE CLEAR (CLEAR/HAZY); URINE BLOOD NEGATIVE (NEGATIVE); URINE COLOR YELLOW (YELLOW); URINE GLUCOSE TRACE (NEGATIVE); URINE KETONE NEGATIVE (NEGATIVE); URINE NITRATE NEGATIVE (NEGATIVE); URINE PROTEIN(semi-quant) NEGATIVE (NEGATIVE); URINE UROBILINOGEN 0.2 E.U/dL (0.2-1.0)
[2023-06-01] MEDS ORDERED: Doxycycline Monohydrate 100 MG CAP PO ONE (02:15)
[2023-06-01] MEDS ORDERED: DOXYCYCLINE 10100 MG PO (02:18)
[2023-06-01 02:32] VITALS: BP 123/78; PULSE 71
[2023-06-01] MEDS ORDERED: ROXICODONE 55 MG/TAB PO (05:38)
== END 2023-06-01 02:57 | disposition home or self-care (01) ==
LOC: COL.ER 22:30
PROVIDERS: Emergency Medicine
DX: R40.4 Transient alteration of awareness (principal); R05.8 Other specified cough; D64.9 Anemia, unspecified; E87.6 Hypokalemia; E88.09 Other disorders of plasma-protein metabolism, not elsewhere classified; R79.89 Other specified abnormal findings of blood chemistry; F17.210 Nicotine dependence, cigarettes, uncomplicated; G40.909 Epilepsy, unspecified, not intractable, without status epilepticus; Z79.899 Other long term (current) drug therapy; Z86.711 Personal history of pulmonary embolism; Z79.01 Long term (current) use of anticoagulants; Z88.5 Allergy status to narcotic agent; Z85.118 Personal history of other malignant neoplasm of bronchus and lung